=== PATIENT | male | born 1955 | race Hispanic/Latino ===

== ENCOUNTER 2016-12-16 21:09 | Inpatient (IN) | payer MEDICARE, MEDICAID, OTHER ==
[2016-12-16 21:34] LABS: BASO # 0.03 K/mm3 (0.0-2.0); BASO % 0.2 % (0.0-3.0); EOS # 0.1 (0.0-0.7); EOS % 0.6 % (1.5-5.0); GRAN # 9.08 (1.4-6.5); GRAN % 74.3 % (50.0-68.0); HEMATOCRIT 43.8 % (42.0-52.0); LYMPH # 2.2 (1.2-3.4); LYMPH % 18.2 % (22.0-35.0); MEAN CELL VOLUME 89.9 fl (80.0-105.0); MEAN CORPUSCULAR HGB CONC 35.6 g/dl (31.0-37.0); MEAN PLATELET VOLUME 10.7 fl (7.0-11.0); MONO # 0.8 (0.1-0.6); MONO % 6.7 % (1.0-6.0); RED CELL DISTRIBUTION WIDTH 13.2 % (11.5-14.5); WHITE BLOOD COUNT 12.2 10^3/ul (4.5-11.0)
--- NOTE | 2016-12-16 21:46 | ED PDOC ---
Arrival/HPI - General Chief Complaint: Weakness/Neurological Deficit Time Seen by Provider: 12/16/16 21:11 Historian: Patient - History of Present Illness Narrative History of Present Illness (Text): 12/16/16 21:12 Lawrence Lenz is a 61 year old male, whose past medical history includes DVT, who presents to the emergency department complaining of general weakness, stumbling, and slurred speech for an unknown time frame as per EMS. Patient denies any fever, chills, chest pain, shortness of breath, nausea, vomiting, diarrhea, urinary symptoms, back pain, neck pain, headache, dizziness, or any other complaints. Time/Duration: Other (unknown) Symptom Course: Unchanged Activities at Onset: Light Context: Home Past Medical History - Provider Review Nursing Documentation Reviewed: Yes - Infectious Disease Hx of Infectious Diseases: None - Tetanus Immunization Tetanus Immunization: Unknown - Reproductive Currently : No Currently Lactating: No - Cardiac Hx Cardiac Disorders: Yes Hx Hypertension: Yes - HEENT Hx HEENT Disorder: ([place]) - Endocrine/Metabolic Hx Endocrine Disorders: Yes Hx Diabetes Mellitus Type 2: Yes - Hematological/Oncological Hx Blood Transfusions: No Hx Blood Transfusion Reaction: No - Integumentary Hx Dermatological Disorder: No - Musculoskeletal/Rheumatological Hx Musculoskeletal Disorders: No - Gastrointestinal Hx Gastrointestinal Disorders: No - Genitourinary/Gynecological Hx Genitourinary Disorders: No - Psychiatric Hx Emotional Abuse: No Hx Physical Abuse: No Hx Substance Use: No - Past Surgical History Past Surgical History: No Previous - Surgical History Hx Appendectomy: Yes Other/Comment: plate on mouth - Anesthesia Hx Anesthesia: Yes Hx Anesthesia Reactions: No Hx Malignant Hyperthermia: No - Suicidal Assessment Feels Threatened In Home Enviroment: No Family/Social History - Physician Review Nursing Documentation Reviewed: Yes Family/Social History: No Known Family HX Smoking Status: Current Some Days Smoker Hx Alcohol Use: No Hx Substance Use: No Allergies/Home Meds Allergies/Adverse Reactions: Allergies No Known Allergies Allergy (Verified 12/16/16 21:21) Home Medications: Home Meds Medication Instructions Recorded Confirmed Atorvastatin Calcium [Lipitor] 20 mg PO DAILY 10/09/12 12/16/16 Glimepiride [amaRYL] 4 mg PO DAILY 05/28/15 12/16/16 Metformin HCl [Glucophage] 500 mg PO DAILY 05/28/15 12/16/16 Olanzapine [Zyprexa] 5 mg PO DAILY 05/28/15 12/16/16 PARoxetine [Paxil] 10 mg PO DAILY 05/28/15 12/16/16 Valsartan [Diovan] 320 mg PO DAILY 05/28/15 12/16/16 amLODIPine [Norvasc] 5 mg PO HS 05/28/15 12/16/16 diaZEpam [Valium] 5 mg PO PRN PRN 05/28/15 12/16/16 Review of Systems - Physician Review All systems were reviewed & negative as marked: Yes - Review of Systems Constitutional: Other (Generalized weakness). absent: Fevers, Night Sweats Eyes: absent: Vision Changes ENT: absent: Hearing Changes Respiratory: absent: SOB Cardiovascular: absent: Chest Pain Gastrointestinal: absent: Abdominal Pain Genitourinary Male: absent: Dysuria Musculoskeletal: absent: Arthralgias Skin: absent: Rash, Pruritis Neurological: Speech Changes (slurred speech). absent: Headache Endocrine: absent: Diaphoresis Hemo/Lymphatic: absent: Adenopathy Psychiatric: absent: Anxiety Physical Exam Vital Signs Reviewed: Yes Vital Signs Temp Pulse Resp BP Pulse Ox 12/17/16 03:00 23 138/62 95 12/16/16 23:55 79 21 148/81 93 L 12/16/16 21:26 99.4 F 81 16 141/85 100 Temperature: Afebrile Blood Pressure: Normal Pulse: Regular Respiratory Rate: Normal Appearance: Positive for: Other (Confused) Pain Distress: None Finger Stick Blood Glucose: 370 - Systems Exam Head: Present: Atraumatic, Normocephalic Pupils: Present: PERRL Extroacular Muscles: Present: EOMI Conjunctiva: Present: Normal Mouth: Present: Moist Mucous Membranes Neck: Present: Normal Range of Motion Respiratory/Chest: Present: Clear to Auscultation, Good Air Exchange. No: Respiratory Distress, Accessory Muscle Use Cardiovascular: Present: Regular Rate and Rhythm, Normal S1, S2. No: Murmurs Abdomen: Present: Normal Bowel Sounds. No: Tenderness, Distention, Peritoneal Signs Back: Present: Normal Inspection Upper Extremity: Present: Normal Inspection. No: Cyanosis, Edema Lower Extremity: Present: Normal Inspection. No: Edema Skin: Present: Warm, Dry, Normal Color. No: Rashes Medical Decision Making ED Course and Treatment: 12/16/16 21:15 Impression: 61 year old male complaining of generalized weakness, stumbling and slurred speech for an unknown time frame. Differential Diagnosis included but are not limited to: Plan: -- EKG -- Head CT w/o contrast -- Blood Culture -- Urine Culture and Urinalysis -- Labs -- Reassess and disposition Prior Visits: Notes and results from previous visits were reviewed. Patient last seen in the ED on 05/28/15 for Left 4th finger painful swelling for 2 weeks. Patient was discharged home. Progress Notes: EKG: Ordered, reviewed, and independently interpreted the EKG. Rate : 88 BPM Rhythm : NSR Interpretation : Non-specific ST wave changes. Comparison : No previous EKG for comparison. 12/16/16 22:56 HEAD W/O CONTRAST: Creator : Lia Ortega MD FINDINGS: BRAIN: Focal area of low density measuring 3.5 cm in the left cerebellum infero-medially, most likely representing focal encephalomalacia secondary to a chronic infarct. Areas of low density in the periventricular white matter bilaterally, most likely representing mild chronic small vessel ischemic changes. No significant acute abnormality identified. Diffuse, age-related cortical atrophy and ventriculomegaly. No acute hemorrhage seen within the brain. No acute extra-axial fluid collections visualized. No evidence of significant mass effect within the brain. VENTRICLES: See above. BONES/JOINTS: No acute fractures or other acute bony abnormality noted. SOFT TISSUES: No acute abnormality of the visualized soft tissues is seen. VASCULATURE: Atherosclerotic calcification. SINUSES: Visualized paranasal sinuses appear clear. MASTOID AIR CELLS: Mastoid air cells appear clear. IMPRESSION: - No acute findings seen within the brain. - Focal encephalomalacia in the left cerebellum, most likely secondary to a chronic infarct. - See above for remaining findings. case d/w dr kelley kennedy tele obs for ams, possible medication abuse 12/17/16 06:16 - Lab Interpretations Lab Results: 12/16/16 21:15 12/16/16 21:15 Lab Results 12/16/16 23:47: pCO2 43, pO2 54.0 L, HCO3 27.9, ABG pH 7.42, ABG Total CO2 29.2 H, ABG O2 Saturation 96.0, ABG O2 Content 15.8, ABG Base Excess 2.9, ABG Hemoglobin 14.5, ABG Carboxyhemoglobin 18.4 H, POC ABG HHb (Measured) 3.2, ABG Methemoglobin 1.0, ABG O2 Capacity 16.5, Hgb O2 Saturation 77.4 L, FiO2 21.0 12/16/16 22:05: Ammonia < 9 L 12/16/16 21:15: Acetaminophen < 10.0 L 12/16/16 21:15: Alcohol, Quantitative < 10 12/16/16 21:15: Sodium 137, Potassium 3.6, Chloride 100, Carbon Dioxide 26, Anion Gap 15, BUN 11, Creatinine 0.6, Est GFR ( Amer) > 60, Est GFR (Non- Af Amer) > 60, Random Glucose 298 H, Calcium 9.4, Phosphorus 3.5, Magnesium 1.7 , Total Bilirubin 0.5, AST 21, ALT 20, Alkaline Phosphatase 177 H, Lactate Dehydrogenase 453, Total Creatine Kinase 49, Troponin I < 0.01, Total Protein 6.8, Albumin 4.3, Globulin 2.5, Albumin/Globulin Ratio 1.7 12/16/16 21:15: PT 10.9, INR 1.01, APTT 26.4 12/16/16 21:15: WBC 12.2 H, RBC 4.87, Hgb 15.6, Hct 43.8, MCV 89.9, MCH 32.0, MCHC 35.6, RDW 13.2, Plt Count 162, MPV 10.7, Gran % 74.3 H, Lymph % (Auto) 18.2 L, [place] % (Auto) 6.7 H, Eos % (Auto) 0.6 L, Baso % (Auto) 0.2, Gran # 9.08 H, Lymph # 2.2, [place] # 0.8 H, Eos # 0.1, Baso # 0.03 I have reviewed the lab results: Yes - RAD Interpretation Radiology Orders: 12/16/16 21:23 HEAD W/O CONTRAST [CT] Stat - Medication Orders Current Medication Orders: Albuterol/Ipratropium (Duoneb 3 Mg/0.5 Mg (3 Ml) Ud) 3 ml IH Q4H PRN PRN Reason: Shortness of Breath Insulin Human Regular (Humulin R Low) 0 units SC ACHS TIFFANIE PRN Reason: Protocol Discontinued Medications Albuterol/Ipratropium (Duoneb 3 Mg/0.5 Mg (3 Ml) Ud) 3 ml IH STAT STA Stop: 12/17/16 00:13 Last Admin: 12/17/16 00:30 Dose: 3 ml Methylprednisolone (Solu-Medrol) 125 mg IVP ONCE ONE Stop: 12/17/16 01:03 Last Admin: 12/17/16 01:33 Dose: 125 mg IVP Administration Document 12/17/16 01:33 SC (Rec: 12/17/16 01:33 SC [id number]) Charges for Administration # of IVP Administrations 1 NIHSS Scale ([place]) - How Severe is the Stoke Baseline Level of Consciousness: 0=Alert LOC to Questions: 0=Both comments correct LOC to commands: 0=Obeys both correctly Best Gaze: 0=Normal Visual: 0=No visual loss Facial: 0=Normal Motor Arm - Left: 0=No drift Motor Arm - Right: 0=No drift Motor Leg - Left: 0=No drift Motor Leg - Right: 0=No drift Limb Ataxia: 0=Absent Sensory: 0=Normal Best Language: 0=No aphasia Dysarthia: 0=Normal articulation Extinction & Inattention (Neglect): 0=Normal, no object Score: 0 Risk Level: No Stroke Risk rTPA Inclusion/Exclusion - Refusal of Treatment Patient Refused Treatment: No - Inclusion Criteria for Altepase Patient is 18 years or Older: Yes The Clinical Diagnosis of Ischemic Stroke That is Causing a Potentially Disabling Neurological Deficit: No Time of Onset is Well Established to be Less Than 270 Minute Before Treatment Would Begin: No Risk/Benefit Discussed With Patient/Family Member Present: No - Exclusion Criteria for Altepase Uncontrolled Hypertension at Time of Treatment (Systolic BP above 185 or Diastolic BP above 110 mmHg): No Active Internal Bleeding: No Known Bleeding Diathesis Including but Not Limited to: Platelets Below 100,000/ mm,PTT Above 40 sec After Heparin Use, Current Use of Oral Anitcoagulant With INR Greater Than 1.7 or PT Greater Than 15 secs: No Evidence of an Intracranial Hemorrhage: No Evidence of Major Acute Infarct With Signs Greater Than 1/3 MCA Territory: No Suspicion of Subarachnoid Hemorrhage on Pretreatment Evaluation Even if CT Head Negative For Hemorrhage: No - Warning to TPA With Conditions Condition: Stroke Serevity Too Mild - Scribe Statement The provider has reviewed the documentation as recorded by the Scribe Chana Jim Provider Scribe Attestation: All medical record entries made by the Benja were at my direction and personally dictated by me. I have reviewed the chart and agree that the record accurately reflects my personal performance of the history, physical exam, medical decision making, and the department course for this patient. I have also personally directed, reviewed, and agree with the discharge instructions and disposition. Disposition/Present on Arrival - Present on Arrival Any Indicators Present on Arrival: No History of DVT/PE: Yes History of Uncontrolled Diabetes: Yes Urinary Catheter: No History of Decub. Ulcer: No History Surgical Site Infection Following: None - Disposition Have Diagnosis and Disposition been Completed?: Yes Diagnosis: Altered mental status Disposition: HOSPITALIZED Disposition Time: 22:00 Condition: FAIR
[2016-12-16 21:50] LABS: ALB/GLOB RATIO 1.7 (1.1-1.8); ALKALINE PHOSPHATASE 177 U/L (38-126); ALT/SGPT 20 U/L (7-56); AST/SGOT 21 U/L (17-59); BILIRUBIN,TOTAL 0.5 mg/dL (0.2-1.3); BLOOD UREA NITROGEN 11 mg/dL (7-21); CALCIUM 9.4 mg/dL (8.4-10.5); CARBON DIOXIDE 26 mmol/L (21-33); CHLORIDE 100 mmol/L (98-107); GFR AFRICAN-AMERICAN > 60; GLUCOSE,RANDOM 298 mg/dL (70-110); MAGNESIUM 1.7 mg/dL (1.7-2.2); PHOSPHOROUS 3.5 mg/dL (2.5-4.5); POTASSIUM 3.6 mmol/L (3.6-5.0); SODIUM 137 mmol/L (132-148); TOTAL PROTEIN 6.8 g/dL (5.8-8.3)
[2016-12-16 21:55] LABS: INR 1.01 (0.93-1.08); PARTIAL THROMBOPLASTIN TIME 26.4 Seconds (23.7-30.8)
[2016-12-16 22:06] LABS: TROPONIN I < 0.01 ng/mL
--- NOTE | 2016-12-16 22:36 | CT ---
EXAM: CT Head Without Intravenous Contrast EXAM DATE/TIME: 12/16/2016 9:23 PM CLINICAL HISTORY: 61 years old, male; Signs and symptoms; Altered mental status/memory loss; Confusion or disorientation; Additional info: AMS TECHNIQUE: Axial computed tomography images of the head/brain without intravenous contrast. All CT scans at this facility use one or more dose reduction techniques, viz.: automated exposure control; ma/kV adjustment per patient size (including targeted exams where dose is matched to indication; i.e. head); or iterative reconstruction technique. COMPARISON: No relevant prior studies available. FINDINGS: BRAIN: Focal area of low density measuring 3.5 cm in the left cerebellum infero-medially, most likely representing focal encephalomalacia secondary to a chronic infarct. Areas of low density in the periventricular white matter bilaterally, most likely representing mild chronic small vessel ischemic changes. No significant acute abnormality identified. Diffuse, age-related cortical atrophy and ventriculomegaly. No acute hemorrhage seen within the brain. No acute extra-axial fluid collections visualized. No evidence of significant mass effect within the brain. VENTRICLES: See above. BONES/JOINTS: No acute fractures or other acute bony abnormality noted. SOFT TISSUES: No acute abnormality of the visualized soft tissues is seen. VASCULATURE: Atherosclerotic calcification. SINUSES: Visualized paranasal sinuses appear clear. MASTOID AIR CELLS: Mastoid air cells appear clear. IMPRESSION: - No acute findings seen within the brain. - Focal encephalomalacia in the left cerebellum, most likely secondary to a chronic infarct. - See above for remaining findings.
[2016-12-16 23:51] LABS: ARTERIAL BLOOD GAS HCO3 27.9 mmol/L (21-28); ARTERIAL BLOOD GAS O2 CAPACITY 16.5 mL/dl (16-24); ARTERIAL BLOOD GAS O2 CONTENT 15.8 ML/dl (15-23); ARTERIAL BLOOD GAS PH 7.42 (7.35-7.45); ARTERIAL BLOOD HGB O2 SAT 77.4 % (95.0-98.0); CARBOXYHEMOGLOBIN 18.4 % (0.5-1.5); HHB 3.2 % (0-5)
[2016-12-17] MEDS ORDERED: Albuterol-Ipratrop 3 mg / 0.5 (3 ml) UD IH STA (00:12)
[2016-12-17] MEDS ORDERED: Albuterol-Ipratrop 3 mg / 0.5 (3 ml) UD IH PRN (00:53)
[2016-12-17 03:22] LABS: URINE BILIRUBIN NEGATIVE (NEGATIVE); URINE BLOOD NEGATIVE (NEGATIVE); URINE GLUCOSE (UA) >=1000 mg/dL (NEGATIVE); URINE KETONE TRACE mg/dL (NEGATIVE); URINE LEUKOCYTE ESTERASE NEGATIVE Leu/uL (NEGATIVE); URINE PROTEIN NEGATIVE mg/dL (<30 mg/dL); URINE UROBILINOGEN 0.2 E.U./dL (<1 E.U./dL)
[2016-12-17 03:25] LABS: URINE APPEARANCE CLEAR (CLEAR); URINE COLOR YELLOW (YELLOW)
--- NOTE | 2016-12-17 09:52 | CP.PCM.HP ---
History of Present Illness - History of Present Illness History of Present Illness: 61 yo male adm to ICU for AMS x 1 day. Patient confused, no cp , no sob. No witnessed SZ of syncope. CT head neg for acute bleed/infarct Present on Admission - Present on Admission Any Indicators Present on Admission: No Review of Systems - Constitutional Constitutional: Frequent Falls, Weight Loss, Weakness - EENT Nose/Mouth/Throat: Hoarsness, Neck Pain - Cardiovascular Cardiovascular: Claudication, Dyspnea on Exertion - Respiratory Respiratory: Cough, Dyspnea on Exertion - Neurological Neurological: Abnormal Gait, Abnormal Speech, Confusion Past Patient History - Infectious Disease Hx of Infectious Diseases: None - Tetanus Immunizations Tetanus Immunization: Unknown - Past Social History Smoking Status: Current Some Days Smoker - CARDIAC Hx Cardiac Disorders: Yes Hx Hypertension: Yes - PULMONARY Hx Chronic Obstructive Pulmonary Disease (COPD): Yes - HEENT Hx HEENT Problems: Yes ([place]) - ENDOCRINE/METABOLIC Hx Endocrine Disorders: Yes Hx Diabetes Mellitus Type 2: Yes - HEMATOLOGICAL/ONCOLOGICAL Hx Blood Transfusions: No Hx Blood Transfusion Reaction: No - INTEGUMENTARY Hx Dermatological Problems: No - MUSCULOSKELETAL/RHEUMATOLOGICAL Hx Musculoskeletal Disorders: No - GASTROINTESTINAL Hx Gastrointestinal Disorders: No - GENITOURINARY/GYNECOLOGICAL Hx Genitourinary Disorders: No - PSYCHIATRIC Hx Emotional Abuse: No Hx Physical Abuse: No Hx Substance Use: No - SURGICAL HISTORY Hx Appendectomy: Yes Other/Comment: plate on mouth - ANESTHESIA Hx Anesthesia: Yes Hx Anesthesia Reactions: No Hx Malignant Hyperthermia: No Meds Allergies/Adverse Reactions: Allergies Allergy/AdvReac Type Severity Reaction Status Date / Time No Known Allergies Allergy Verified 12/16/16 21:21 Physical Exam - Constitutional Appears: Cachectic - Head Exam Head Exam: ATRAUMATIC, NORMOCEPHALIC - Eye Exam Eye Exam: EOMI, PERRL - Neck Exam Neck exam: Positive for: Normal Inspection - Respiratory Exam Respiratory Exam: Rhonchi, Wheezes - Cardiovascular Exam Cardiovascular Exam: REGULAR RHYTHM - GI/Abdominal Exam GI & Abdominal Exam: Normal Bowel Sounds, Soft - Extremities Exam Extremities exam: Positive for: normal inspection - Neurological Exam Neurological exam: Abnormal Gait, Altered - Psychiatric Exam Psychiatric exam: Flat Affect - Skin Skin Exam: Dry, Warm Results - Vital Signs Recent Vital Signs: Last Vital Signs Temp 98.9 F 12/17/16 06:30 Pulse 80 12/17/16 09:38 Resp 21 12/17/16 08:00 BP 128/63 12/17/16 08:00 Pulse Ox 98 12/17/16 08:00 - Labs Result Diagrams: 12/16/16 21:15 12/16/16 21:15 Labs: Laboratory Results - last 24 hr 12/17/16 12/17/16 03:00 03:00 Urine Color Yellow Urine Appearance Clear Urine pH 7.0 Ur Specific [place] 1.015 Urine Protein Negative Urine Glucose (UA) >=1000 Urine Ketones Trace H Urine Blood Negative Urine Nitrate Negative Urine Bilirubin Negative Urine Urobilinogen 0.2 Ur Leukocyte Esterase Negative Urine Opiates Screen Negative Urine Methadone Screen Negative Ur Barbiturates Screen Negative Ur Phencyclidine Scrn Negative Ur Amphetamines Screen Negative U Benzodiazepines Scrn Positive U Oth Cocaine Metabols Negative U Cannabinoids Screen Negative Assessment & Plan (1) Altered mental status Status: Acute (2) COPD (chronic obstructive pulmonary disease) Status: Chronic (3) Type II diabetes mellitus Status: Chronic (4) Hypertension Status: Chronic (5) Hoarseness of voice Status: Chronic - Assessment and Plan (Free Text) Plan: neuro eval, possible MRA/MRI brain, ENT eval, continue monitor mental status - Date & Time Date: 12/17/16 Time: 09:45
--- NOTE | 2016-12-17 10:51 | RAD ---
HISTORY: cp COMPARISON: 08/13/2013 FINDINGS: LUNGS: No active pulmonary disease. PLEURA: No significant pleural effusion identified, no pneumothorax apparent. CARDIOVASCULAR: Normal. OSSEOUS STRUCTURES: No significant abnormalities. VISUALIZED UPPER ABDOMEN: Normal. OTHER FINDINGS: None. IMPRESSION: No active disease.
[2016-12-17] MEDS: Insulin Reg-LOW-Coverage SC SCH ×4 (12:03→22:19)
--- NOTE | 2016-12-17 12:32 | CARD ---
APPROVED REPORT EKG Measurement Heart [id number] ID [id number] <Conclusion> Sinus rhythm with APC's, 1 PVC Rightward axis Possible septal infarct, age undetermined NSSTW changes
[2016-12-17 12:51] VITALS: BMI 20.6
[2016-12-17] MEDS ORDERED: Pneumococcal 23-Valent Vaccine IM ONE (12:51)
[2016-12-17] MEDS ORDERED: Gadodiamide 287 MG/ML VIAL (20ML) IV ONE (13:21)
--- NOTE | 2016-12-17 13:40 | CP.PCM.CON ---
<Pari Menjivar - Last Filed: 12/17/16 14:02> History of Present Illness - History of Present Illness History of Present Illness: Neurology Consult Note for Jayden Rome PGY2 Reason for consult: AMS This is a 61Y M with PMH HTN, DM, HLD, DVT, anxiety who was brought to ED for AMS. Upon interview, patient was confused. He was A&O x 1 to person only. He denies having any pain, weakness, headache, CP, SOB, n/v/d, numbness/tingling. At times he has trouble speaking full sentences. I spoke with a co-worker who was placed as next of kin. According to her, the patient did not come into work yesterday. The neighbor called his house and noticed his speech was off. The used building materials yard worker came to see the patient and found the patient was confused and decided to call EMS. The patient lives alone and does not have any family members. Head CT on admission showed chronic focal encephalomalacia of the L cerebellum. Tox screen was positive for benzos which he is on at home. History was obtained from previous records. Patient had a carotid dopplers done on 12/10/2016 which showed 20-39% stenosis. L vertebral artery was not visualized. Patient is noted to have L SFA occlusion on lower extremity MRA in 11/06/16 PMH: HTN, DM, HLD, DVT, anxiety PSH: L facial abscess I&D Home meds: As per MAY ALL: NKDA SH: + tobacco use, denies EtOH or drug use Review of Systems - Review of Systems Systems not reviewed;Unavailable: Altered Mental Status All systems: reviewed and no additional remarkable complaints except Review of Systems: denies having any pain, weakness, headache, CP, SOB, n/v/d, numbness/tingling. Past Patient History - Infectious Disease Hx of Infectious Diseases: None - Tetanus Immunizations Tetanus Immunization: Unknown - Past Social History Smoking Status: Current Some Days Smoker Alcohol: None Drugs: Denies Home Situation {Lives}: Alone - CARDIAC Hx Cardiac Disorders: Yes Hx Hypercholesterolemia: Yes Hx Hypertension: Yes Hx Peripheral Vascular Disease: Yes (DVT) - PULMONARY Hx Respiratory Disorders: Yes (SMOKES CIGARETTES PPD) Hx Chronic Obstructive Pulmonary Disease (COPD): Yes - NEUROLOGICAL Hx Neurological Disorder: Yes - HEENT Hx HEENT Problems: Yes ([place]) Hx Deafness: Yes (LEFT EAR) - RENAL Hx Chronic Kidney Disease: No - ENDOCRINE/METABOLIC Hx Endocrine Disorders: Yes Hx Diabetes Mellitus Type 2: Yes - HEMATOLOGICAL/ONCOLOGICAL Hx Blood Disorders: No - INTEGUMENTARY Hx Dermatological Problems: No - MUSCULOSKELETAL/RHEUMATOLOGICAL Hx Musculoskeletal Disorders: Yes Hx Falls: Yes (MULTIPLE FALLS) - GASTROINTESTINAL Hx Gastrointestinal Disorders: No - GENITOURINARY/GYNECOLOGICAL Hx Genitourinary Disorders: No - PSYCHIATRIC Hx Psychophysiologic Disorder: No Hx Emotional Abuse: No Hx Physical Abuse: No Hx Substance Use: No (DENIES) - SURGICAL HISTORY Hx Surgeries: Yes Hx Appendectomy: Yes Other/Comment: plate on mouth - ANESTHESIA Hx Anesthesia: Yes Hx Anesthesia Reactions: No Hx Malignant Hyperthermia: No Meds Allergies/Adverse Reactions: Allergies Allergy/AdvReac Type Severity Reaction Status Date / Time No Known Allergies Allergy Verified 12/17/16 11:27 - Medications Medications: Current Medications Albuterol/Ipratropium (Duoneb 3 Mg/0.5 Mg (3 Ml) Ud) 3 ml IH Q4H PRN PRN Reason: Shortness of Breath Insulin Human Regular (Humulin R Low) 0 units SC ACHS [facility] PRN Reason: Protocol Last Admin: 12/17/16 12:04 Dose: 3 units Thiamine HCl (Vitamin B1 Inj) 100 mg IM BID [facility] Physical Exam - Constitutional Appears: No Acute Distress, Confused - Head Exam Head Exam: ATRAUMATIC, NORMAL INSPECTION, NORMOCEPHALIC - Eye Exam Eye Exam: Normal appearance, PERRL Pupil Exam: NORMAL ACCOMODATION, PERRL - ENT Exam ENT Exam: Mucous Membranes Moist - Respiratory Exam Respiratory Exam: Clear to Auscultation Bilateral, NORMAL BREATHING PATTERN. absent: Rales, Rhonchi, Wheezes - Cardiovascular Exam Cardiovascular Exam: REGULAR RHYTHM, +S1, +S2. absent: Gallop, Rubs, Systolic Murmur - GI/Abdominal Exam GI & Abdominal Exam: Normal Bowel Sounds, Soft. absent: Rebound, Rigid, Tenderness - Extremities Exam Extremities exam: Positive for: normal inspection. Negative for: calf tenderness, pedal edema - Neurological Exam Neurological exam: Alert, CN II-XII Intact Additional comments: A&O x 1 - Psychiatric Exam Psychiatric exam: Normal Affect, Normal Mood - Skin Skin Exam: Dry, Intact, Normal Color, Warm Results - Vital Signs Recent Vital Signs: Last Vital Signs Temp 98.5 F 12/17/16 12:02 Pulse 80 12/17/16 12:02 Resp 21 12/17/16 12:02 BP 128/63 12/17/16 12:02 Pulse Ox 98 12/17/16 08:00 - Labs Result Diagrams: 12/16/16 21:15 12/16/16 21:15 Labs: Laboratory Results - last 24 hr 12/17/16 12/17/16 03:00 03:00 Urine Color Yellow Urine Appearance Clear Urine pH 7.0 Ur Specific [place] 1.015 Urine Protein Negative Urine Glucose (UA) >=1000 Urine Ketones Trace H Urine Blood Negative Urine Nitrate Negative Urine Bilirubin Negative Urine Urobilinogen 0.2 Ur Leukocyte Esterase Negative Urine Opiates Screen Negative Urine Methadone Screen Negative Ur Barbiturates Screen Negative Ur Phencyclidine Scrn Negative Ur Amphetamines Screen Negative U Benzodiazepines Scrn Positive U Oth Cocaine Metabols Negative U Cannabinoids Screen Negative Assessment & Plan - Assessment and Plan (Free Text) Assessment: This is a 61Y M with PMH HTN, DM, HLD, DVT, anxiety who was brought to ED for AMS. Head CT showed L chronic focal encephalomalacia of cerebellum. Carotid doppler showed 20-39% stenosis with no visualization of L vertebral artery. Tox screen positive for benzo which pt has at home. Ammonia level normal. AMS can be secondary to CVA due to underlying risk factors. Patient noted to have L SFA occlusion and was supposedly scheduled for a surgery. He is currently not on any anticoagulants. Plan: - Will obtain head/neck MRA - Will order brain MRI - Avoid sedation medications - Will start pt on ASA - Will consult IR for L SFA occlusion - Thiamine 100mg BID - HgbA1c ordered - Maintain euglycemia (140s-180s) - Physical therapy/Occupation therapy Case seen, discussed and reviewed with attending, Dr. Hays. Jayden Menjivar PGY2 - Date & Time Date: 12/17/16 Time: 13:41 <Vicente Hays - Last Filed: 12/17/16 15:15> Meds - Medications Medications: Current Medications Albuterol/Ipratropium (Duoneb 3 Mg/0.5 Mg (3 Ml) Ud) 3 ml IH Q4H PRN PRN Reason: Shortness of Breath Aspirin (Ecotrin) 81 mg PO DAILY [facility] Insulin Human Regular (Humulin R Low) 0 units SC ACHS [facility] PRN Reason: Protocol Last Admin: 12/17/16 12:04 Dose: 3 units Thiamine HCl (Vitamin B1 Inj) 100 mg IM BID [facility] Results - Vital Signs Recent Vital Signs: Last Vital Signs Temp 98.5 F 12/17/16 12:02 Pulse 80 12/17/16 12:02 Resp 21 12/17/16 12:02 BP 128/63 12/17/16 12:02 Pulse Ox 98 12/17/16 08:00 - Labs Result Diagrams: 12/16/16 21:15 12/16/16 21:15 Labs: Laboratory Results - last 24 hr 12/17/16 12/17/16 03:00 03:00 Urine Color Yellow Urine Appearance Clear Urine pH 7.0 Ur Specific [place] 1.015 Urine Protein Negative Urine Glucose (UA) >=1000 Urine Ketones Trace H Urine Blood Negative Urine Nitrate Negative Urine Bilirubin Negative Urine Urobilinogen 0.2 Ur Leukocyte Esterase Negative Urine Opiates Screen Negative Urine Methadone Screen Negative Ur Barbiturates Screen Negative Ur Phencyclidine Scrn Negative Ur Amphetamines Screen Negative U Benzodiazepines Scrn Positive U Oth Cocaine Metabols Negative U Cannabinoids Screen Negative Attending/Attestation - Attestation I have personally seen and examined this patient.: Yes I have fully participated in the care of the patient.: Yes I have reviewed all pertinent clinical information: Yes
--- NOTE | 2016-12-17 16:10 | MRI ---
PROCEDURE: MRI BRAIN WITHOUT CONTRAST HISTORY: r/o cva COMPARISON: None. TECHNIQUE: Multiplanar, multisequence MR images of the brain were obtained without intravenous contrast enhancement. FINDINGS: HEMORRHAGE: None DWI: Multiple cortical and subcortical acute infarcts are seen in the left frontal lobe. These are in the distribution of the left middle cerebral artery. Small infarcts are also seen in the left thalamus and left posterior temporal lobe. BRAIN PARENCHYMA: No mass effect or edema. Mild chronic microvascular changes are seen in the periventricular white matter. VENTRICLES: Unremarkable. No hydrocephalus. CRANIUM: Unremarkable. ORBITS: Grossly unremarkable. PARANASAL SINUSES/MASTOIDS: Clear VASCULAR SYSTEM: Skull base flow voids intact. OTHER FINDINGS: None. IMPRESSION: Multiple acute cortical and subcortical infarcts in the left frontal lobe.
--- NOTE | 2016-12-17 16:16 | MRI ---
PROCEDURE: Magnetic Resonance Angiography Brain HISTORY: r/o cva COMPARISON: None available. TECHNIQUE: 3D time of flight MR angiography of the intracranial arteries was performed. Rotating maximum intensity projection images were generated. FINDINGS: INTERNAL CAROTID ARTERIES: There is occlusion of the left internal carotid artery. ANTERIOR CEREBRAL ARTERIES: Unremarkable. A1 and A2 segments are widely patent. Smaller distal branches unremarkable, as visualized. MIDDLE CEREBRAL ARTERIES: There is lack of antegrade flow in the middle cerebral arteries bilaterally. There is probably retrograde collateral flow that is not visible on MRA. MRI study performed at the same time shows multiple acute infarcts in the left frontal lobe and no infarcts on the right side. POSTERIOR CIRCULATION: Basilar Artery: Unremarkable. Distal Vertebral Arteries: Unremarkable. Posterior Cerebral Arteries: Unremarkable. Posterior Inferior Cerebellar Arteries: Unremarkable. ANEURYSM/ VASCULAR MALFORMATIONS: None. OTHER FINDINGS: None. IMPRESSION: There is lack of antegrade flow in the middle cerebral arteries bilaterally. There is probably retrograde collateral flow that is not visible on MRA. MRI study performed at the same time shows multiple acute infarcts in the left frontal lobe and no infarcts on the right side. There is occlusion of the left internal carotid artery
--- NOTE | 2016-12-17 16:23 | MRI ---
PROCEDURE: MR Angiography of the neck with and without contrast HISTORY: r/o cva COMPARISON: None available. TECHNIQUE: Contrast enhanced and [id number] angiography of the neck was performed. Rotating 3D maximum intensity projection images of the cervical carotid and vertebral arteries were generated. 20 cc of Omniscan FINDINGS: RIGHT CAROTID ARTERIES: Common Carotid Artery: Normal. Carotid Bifurcation: Normal. Internal Carotid Artery:No significant stenosis External Carotid Artery (proximal branches): Normal. LEFT CAROTID ARTERIES: Common Carotid Artery: Normal. Carotid Bifurcation: There is complete occlusion of the left internal carotid at its origin Internal Carotid Artery:As above External Carotid Artery (proximal branches): Normal. VERTEBRAL ARTERIES: Right Vertebral Artery: Normal. Left Vertebral Artery: Occluded or hypoplastic OTHER FINDINGS: None. IMPRESSION: Complete occlusion of left internal carotid at its origin. Occluded or hypoplastic left vertebral artery.
[2016-12-17] MEDS: Heparin 25,000units in D5W 25,000 UNITS/250 ML BAG IV PRN (20:39)
[2016-12-18] MEDS: Insulin Reg-HIGH-Coverage SC SCH ×4 (08:23→23:19)
--- NOTE | 2016-12-18 09:50 | CP.PCM.PN ---
<Pari Menjivar - Last Filed: 12/18/16 09:20> Subjective - Date & Time of Evaluation Date of Evaluation: 12/18/16 Time of Evaluation: 09:21 - Subjective Subjective: Neurology Progress Note for Jayden Rome PGY2 Patient seen and examined at bedside. As per nursing, patient was confused overnight. Restraints were ordered. This am, patient is resting comfortably in bed. He is still confused and only oriented to person. Patient denies having any pain, weakness, numbness/tingling, vision changes, headache or dizziness. It was noted on MRI that patient has multiple acute and subacute infarcts in L frontal lobe. Objective - Vital Signs/Intake and Output Vital Signs (last 24 hours): Temp Pulse Resp BP Pulse Ox 98.3 F 59 L 21 119/74 92 L 12/18/16 08:00 12/18/16 08:00 12/18/16 08:00 12/18/16 08:00 12/18/16 08:00 Intake and Output: 12/18/16 12/18/16 06:59 18:59 Intake Total 220 Output Total 350 Balance -130 - Medications Medications: Current Medications Albuterol/Ipratropium (Duoneb 3 Mg/0.5 Mg (3 Ml) Ud) 3 ml IH Q4H PRN PRN Reason: Shortness of Breath Aspirin (Ecotrin) 81 mg PO DAILY [facility] Last Admin: 12/17/16 15:44 Dose: 81 mg Atorvastatin Calcium (Lipitor) 80 mg PO DIN [facility] Heparin Sodium/Dextrose (Heparin 25,000 Units/250ml In D5w) 25,000 units in 250 mls @ 11.757 mls/hr IV .[id number] PRN; Protocol; 18 UNITS/KG/HR PRN Reason: ADJUST RATE PER PROTOCOL Last Titration: 12/18/16 04:41 Dose: 20 units/kg/hr, 13.063 mls/hr Insulin Human Regular (Humulin R High) 0 units SC ACHS [facility] PRN Reason: Protocol Last Admin: 12/18/16 08:23 Dose: 7 units Thiamine HCl (Vitamin B1 Inj) 100 mg IM BID [facility] - Labs Labs: PT 10.9 Seconds (9.9-11.8) 12/16/16 21:15 INR 1.01 (0.93-1.08) 12/16/16 21:15 APTT 43.9 Seconds (23.7-30.8) H 12/18/16 02:46 - Constitutional Appears: No Acute Distress, Confused - Head Exam Head Exam: ATRAUMATIC, NORMAL INSPECTION, NORMOCEPHALIC - ENT Exam ENT Exam: Mucous Membranes Moist - Neck Exam Neck Exam: Full ROM, Normal Inspection - Respiratory Exam Respiratory Exam: Clear to Ausculation Bilateral, NORMAL BREATHING PATTERN. absent: Rales, Rhonchi, Wheezes - Cardiovascular Exam Cardiovascular Exam: REGULAR RHYTHM, +S1, +S2. absent: Gallop, Rubs, Murmur - GI/Abdominal Exam GI & Abdominal Exam: Soft, Normal Bowel Sounds. absent: Rigid, Tenderness, Mass , Rebound - Extremities Exam Extremities Exam: Normal Capillary Refill, Normal Inspection. absent: Calf Tenderness, Pedal Edema - Neurological Exam Neurological Exam: Awake. absent: Oriented x3 Additional comments: Speech is somewhat slurred with some aphasia noted. Patient A&O x 1 to person. He is unable to follow commands. - Skin Skin Exam: Dry, Intact, Normal Color Additional comments: L foot colder and toes than R. Peripheral pulses noted bilaterally. Assessment and Plan - Assessment and Plan (Free Text) Assessment: This is a 61Y M with PMH HTN, DM, HLD, DVT, anxiety who was brought to ED for AMS. Head CT showed L chronic focal encephalomalacia of cerebellum. MRI showed multiple acute cortical and subcortical infarcts in the L frontal lobe. MRA Head showed lack of anterograde flow of the middle cerebral arteries bilaterally. 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 HgbA1c was noted to be 15.1. AMS secondary to L frontal CVA which is secondary to L ICA stenosis with uncontrolled underlying risk factors including uncontrolled diabetes as well as atherosclerosis. Of note, patient was scheduled for angioplasty of L SFA by Dr. Navarro. Due to his recent CVA, Dr. Navarro will hold off surgery for a few days and keep patient on Heparin drip. Plan: - Recommend ASA, Plavix - Recommend Cardiac work up - Maintain euglycemia (140-180s) - Recommend Metformin - Lipitor 80mg - Continue thiamine - Continue physical therapy and speech therapy - If pt agitated, place on 1:1 and restraints - Avoid sedating medications Case seen, discussed and reviewed with Dr. Hays. Jayden Menjivar PGY2 <Vicente Hays - Last Filed: 12/18/16 10:49> Objective - Vital Signs/Intake and Output Vital Signs (last 24 hours): Temp Pulse Resp BP Pulse Ox 98.3 F 59 L 21 119/74 92 L 12/18/16 08:00 12/18/16 08:00 12/18/16 08:00 12/18/16 08:00 12/18/16 08:00 Intake and Output: 12/18/16 12/18/16 06:59 18:59 Intake Total 220 Output Total 350 Balance -130 - Medications Medications: Current Medications Albuterol/Ipratropium (Duoneb 3 Mg/0.5 Mg (3 Ml) Ud) 3 ml IH Q4H PRN PRN Reason: Shortness of Breath Aspirin (Ecotrin) 81 mg PO DAILY [facility] Last Admin: 12/18/16 10:46 Dose: 81 mg Atorvastatin Calcium (Lipitor) 80 mg PO DIN [facility] Heparin Sodium/Dextrose (Heparin 25,000 Units/250ml In D5w) 25,000 units in 250 mls @ 11.757 mls/hr IV .[id number] PRN; Protocol; 18 UNITS/KG/HR PRN Reason: ADJUST RATE PER PROTOCOL Last Titration: 12/18/16 04:41 Dose: 20 units/kg/hr, 13.063 mls/hr Insulin Human Regular (Humulin R High) 0 units SC ACHS [facility] PRN Reason: Protocol Last Admin: 12/18/16 08:23 Dose: 7 units Thiamine HCl (Vitamin B1 Inj) 100 mg IM BID [facility] Last Admin: 12/18/16 10:44 Dose: 100 mg - Labs Labs: PT 10.9 Seconds (9.9-11.8) 12/16/16 21:15 INR 1.01 (0.93-1.08) 12/16/16 21:15 APTT 49.2 Seconds (23.7-30.8) H 12/18/16 10:30 Attending/Attestation - Attestation I have personally seen and examined this patient.: Yes I have fully participated in the care of the patient.: Yes I have reviewed all pertinent clinical information, including history, physical exam and plan: Yes
[2016-12-18] MEDS: Thiamine 100 mg/ml Inj IM SCH (10:44)
[2016-12-18 10:45] LABS: CHOLESTEROL 158 mg/dL (130-200)
--- NOTE | 2016-12-18 14:59 | CP.PCM.PN ---
Subjective - Date & Time of Evaluation Date of Evaluation: 12/18/16 Time of Evaluation: 14:45 - Subjective Subjective: somewhat less confused, no cp, denies SOB Objective - Vital Signs/Intake and Output Vital Signs (last 24 hours): Temp Pulse Resp BP Pulse Ox 97.1 F L 72 23 157/67 H 93 L 12/18/16 12:00 12/18/16 12:20 12/18/16 12:20 12/18/16 12:00 12/18/16 12:20 - Medications Medications: Current Medications Albuterol/Ipratropium (Duoneb 3 Mg/0.5 Mg (3 Ml) Ud) 3 ml IH Q4H PRN PRN Reason: Shortness of Breath Aspirin (Ecotrin) 81 mg PO DAILY [facility] Last Admin: 12/18/16 10:46 Dose: 81 mg Atorvastatin Calcium (Lipitor) 80 mg PO DIN [facility] Heparin Sodium/Dextrose (Heparin 25,000 Units/250ml In D5w) 25,000 units in 250 mls @ 11.757 mls/hr IV .[id number] PRN; Protocol; 18 UNITS/KG/HR PRN Reason: ADJUST RATE PER PROTOCOL Last Titration: 12/18/16 04:41 Dose: 20 units/kg/hr, 13.063 mls/hr Insulin Human Regular (Humulin R High) 0 units SC ACHS [facility] PRN Reason: Protocol Last Admin: 12/18/16 11:35 Dose: 4 units Thiamine HCl (Vitamin B1 Inj) 100 mg IM BID [facility] Last Admin: 12/18/16 10:44 Dose: 100 mg - Labs Labs: PT 10.9 Seconds (9.9-11.8) 12/16/16 21:15 INR 1.01 (0.93-1.08) 12/16/16 21:15 APTT 49.2 Seconds (23.7-30.8) H 12/18/16 10:30 - Respiratory Exam Respiratory Exam: Clear to Ausculation Bilateral, NORMAL BREATHING PATTERN - Cardiovascular Exam Cardiovascular Exam: REGULAR RHYTHM - GI/Abdominal Exam GI & Abdominal Exam: Soft, Normal Bowel Sounds - Extremities Exam Extremities Exam: Normal Inspection - Neurological Exam Neurological Exam: Alert, Awake - Skin Skin Exam: Dry, Warm Assessment and Plan (1) Altered mental status Status: Acute (2) COPD (chronic obstructive pulmonary disease) Status: Chronic (3) Type II diabetes mellitus Status: Chronic (4) Hypertension Status: Chronic (5) Hoarseness of voice Status: Chronic (6) CVA (cerebral vascular accident) Status: Acute (7) Carotid artery occlusion with cerebral infarction Status: Acute - Assessment and Plan (Free Text) Plan: OK for telemetry, consult vasc Dr. Oumar Navarro, continue IV heparin
[2016-12-18] MEDS: Heparin 25,000units in D5W 25,000 UNITS/250 ML BAG IV PRN (16:00)
--- NOTE | 2016-12-19 01:13 | CON ---
OTOLARYNGOLOGY CONSULT REFERRING PHYSICIAN: Dr. Lugo. CHIEF COMPLAINT: Rule out laryngeal mass. HISTORY OF PRESENT ILLNESS: This is a 61-year-old male with past medical history of hypertension, hyperlipidemia, diabetes mellitus, and previous CVA, who is brought to the ED for altered mental status on 12/16. All history is obtained from previous medical chart, this patient is unable to provide history. According other medical records, the patient was found to be in his house with altered mental status, was brought to the emergency room to rule CVA. His head CT on admission showed chronic focal encephalomalacia of the left cerebellum and also his tox screen was positive for benzodiazepines, which he takes at home. The patient did have carotid Doppler done previously and he has had MRA performed here and a brain MRI that is pending. There is no imaging of the neck. PAST MEDICAL HISTORY: Hypertension, diabetes, hyperlipidemia and previous CVA. PAST SURGICAL HISTORY: Left facial abscess and I and D. HOME MEDICATIONS: As per med records. ALLERGIES: NO KNOWN DRUG ALLERGIES. SOCIAL HISTORY: Positive for tobacco use. Denies alcohol or illicit drug use. REVIEW OF SYSTEMS: Twelve-point review of systems is negative except as state in HPI. MEDICATIONS: Albuterol and ipratropium, insulin human regular, thiamine HCl. PHYSICAL EXAMINATION: GENERAL: The patient is alert. He is oriented to self. He is in no acute distress, lying in bed. HEAD: Normocephalic, atraumatic. EYE: Pupils are equal, round and reactive to light. Vision grossly normal. EARS: Auricles appear symmetric. No masses noted. NOSE: Nares patent bilaterally. No discharge. No bleeding noted. ORAL: Mucous membranes are moist. The patient has poor dentition. Tongue is non-edematous. Mucosa is non-friable. No lesions noted in the oral cavity. Palpation of the tongue base soft, no mass is palpated or firmness palpated bilaterally. Tonsils are palpated and did not feel firm palpation. The posterior oropharynx is visualized, no bleeding or postnasal drip seen. NECK: Soft, supple. No lymphadenopathy. No masses palpated. HEART: Normal rate. RESPIRATORY: Breathing normally. Flexible fiberoptic laryngoscope. After achieving verbal consent from the patient, the nose was anesthetized using 50/50 mixture of Afrin and lidocaine. The scope was then passed to the right naris, which revealed a nasal septal spur below eyes normal anatomy. The soft palate appeared normal. The eustachian tubes were patent bilaterally. No masses seen in the posterior pharyngeal wall. The vallecula was cleared. The posterior vocal cords were seen with normal adduction of vocal cords, however, anterior commissure and pyriform sinus were unable to visualized because the patient is uncooperative and unable to perform maneuvers. There are no obvious masses seen in the epiglottis or supraglottic space. The scope was then removed and under direct visualization. The patient tolerated the procedure with no complication. VITAL SIGNS: Temperature 98.5, pulse 80, respiratory rate 21, blood pressure 120/63, pulse ox 98% on room air. LABORATORY DATA: WBC 12.2, hemoglobin 15.6, hematocrit 42.8, platelet 162. PT 10.9, INR 1.01. APTT 26.4. ASSESSMENT: This is a 61-year-old male with past medical history of hypertension, hyperlipidemia and previous cerebrovascular accident, who comes in with altered mental status and noted to have a hoarse voice. We are consulted to rule out laryngeal mass. PLAN: The patient exam are normal using flexible laryngoscope; however, the patient unable to cooperate with maneuvers and full exam unable to be completed. We recommend that the patient followup is outpatient and to re-scope in 4 to 6 weeks. No obvious masses. No intervention at this time. Thanks for the consultation. Please re-consult as needed. Sb Mcdonough DO
--- NOTE | 2016-12-19 05:42 | CP.PCM.PN ---
Subjective - Date & Time of Evaluation Date of Evaluation: 12/19/16 Time of Evaluation: 05:28 - Subjective Subjective: It was requested to renew restraint order. Patient is quiet now. Gets agitated intermittently. Medical record was reveiwed. This 61 year old male was admitted with altered mental status. Has PMH of HTN, DM II, COPD. Objective - Vital Signs/Intake and Output Vital Signs (last 24 hours): Temp Pulse Resp BP Pulse Ox 98.7 F 59 L 19 135/58 L 61 L 12/19/16 00:00 12/19/16 03:20 12/19/16 03:20 12/19/16 02:01 12/19/16 01:57 Intake and Output: 12/18/16 12/19/16 18:59 06:59 Intake Total 150 583 Output Total 1050 Balance 150 -467 - Medications Medications: Current Medications Albuterol/Ipratropium (Duoneb 3 Mg/0.5 Mg (3 Ml) Ud) 3 ml IH Q4H PRN PRN Reason: Shortness of Breath Aspirin (Ecotrin) [address] [facility] Last Admin: 12/18/16 10:46 Dose: 81 mg Atorvastatin Calcium (Lipitor) [address] [facility] Last Admin: 12/18/16 17:46 Dose: 80 mg Heparin Sodium/Dextrose (Heparin 25,000 Units/250ml In D5w) 25,000 units in 250 mls @ 11.757 mls/hr IV .[id number] PRN; Protocol; 18 UNITS/KG/HR PRN Reason: ADJUST RATE PER PROTOCOL Last Admin: 12/18/16 16:00 Dose: 22 units/kg/hr, 14.37 mls/hr Insulin Human Regular (Humulin R High) [address] [facility] PRN Reason: Protocol Last Admin: 12/18/16 23:19 Dose: Not Given Thiamine HCl (Vitamin B1 Inj) [address] [facility] Last Admin: 12/18/16 10:44 Dose: 100 mg - Labs Labs: PT 10.9 Seconds (9.9-11.8) 12/16/16 21:15 INR 1.01 (0.93-1.08) 12/16/16 21:15 APTT 61.5 Seconds (23.7-30.8) H 12/19/16 04:00 Micro Results 12/16/16 22:05 Blood-Venous Blood Culture - Preliminary NO GROWTH AFTER 48 HOURS 12/16/16 22:05 Blood-Venous Blood Culture - Preliminary NO GROWTH AFTER 48 HOURS 12/17/16 07:01 Nose MRSA Culture (Admit) - Final MRSA NOT DETECTED 12/17/16 03:00 Urine,Clean Catch Urine Culture - Final No Growth (<1,000 CFU/ML) Most Recent Lab Values WBC 12.2 10^3/ul (4.5-11.0) H 12/16/16 21:15 RBC 4.87 10^6/uL (3.5-6.1) 12/16/16 21:15 Hgb 15.6 g/dL (14.0-18.0) 12/16/16 21:15 Hct 43.8 % (42.0-52.0) 12/16/16 21:15 MCV 89.9 fl (80.0-105.0) 12/16/16 21:15 MCH 32.0 pg (25.0-35.0) 12/16/16 21:15 MCHC 35.6 g/dl (31.0-37.0) 12/16/16 21:15 RDW 13.2 % (11.5-14.5) 12/16/16 21:15 Plt Count 162 10^3/uL (120.0-450.0) 12/16/16 21:15 MPV 10.7 fl (7.0-11.0) 12/16/16 21:15 Gran % 74.3 % (50.0-68.0) H 12/16/16 21:15 Lymph % (Auto) 18.2 % (22.0-35.0) L 12/16/16 21:15 [place] % (Auto) 6.7 % (1.0-6.0) H 12/16/16 21:15 Eos % (Auto) 0.6 % (1.5-5.0) L 12/16/16 21:15 Baso % (Auto) 0.2 % (0.0-3.0) 12/16/16 21:15 Gran # 9.08 (1.4-6.5) H 12/16/16 21:15 Lymph # 2.2 (1.2-3.4) 12/16/16 21:15 [place] # 0.8 (0.1-0.6) H 12/16/16 21:15 Eos # 0.1 (0.0-0.7) 12/16/16 21:15 Baso # 0.03 K/mm3 (0.0-2.0) 12/16/16 21:15 PT 10.9 Seconds (9.9-11.8) 12/16/16 21:15 INR 1.01 (0.93-1.08) 12/16/16 21:15 APTT 61.5 Seconds (23.7-30.8) H 12/19/16 04:00 pCO2 43 mm/Hg (35-45) 12/16/16 23:47 pO2 54.0 mm/Hg (80-100) L 12/16/16 23:47 HCO3 27.9 mmol/L (21-28) 12/16/16 23:47 ABG pH 7.42 (7.35-7.45) 12/16/16 23:47 ABG Total CO2 29.2 mmol.L (22-28) H 12/16/16 23:47 ABG O2 Saturation 96.0 % (95-98) 12/16/16 23:47 ABG O2 Content 15.8 ML/dl (15-23) 12/16/16 23:47 ABG Base Excess 2.9 mmol/L (-2.0-3.0) 12/16/16 23:47 ABG Hemoglobin 14.5 g/dL (11.7-17.4) 12/16/16 23:47 ABG Carboxyhemoglobin 18.4 % (0.5-1.5) H 12/16/16 23:47 POC ABG HHb (Measured) 3.2 % (0-5) 12/16/16 23:47 ABG Methemoglobin 1.0 % (0.0-3.0) 12/16/16 23:47 ABG O2 Capacity 16.5 mL/dl (16-24) 12/16/16 23:47 Hgb O2 Saturation 77.4 % (95.0-98.0) L 12/16/16 23:47 FiO2 21.0 % 12/16/16 23:47 Sodium 137 mmol/L (132-148) 12/16/16 21:15 Potassium 3.6 mmol/L (3.6-5.0) 12/16/16 21:15 Chloride 100 mmol/L (98-107) 12/16/16 21:15 Carbon Dioxide 26 mmol/L (21-33) 12/16/16 21:15 Anion Gap 15 (10-20) 12/16/16 21:15 BUN 11 mg/dL (7-21) 12/16/16 21:15 Creatinine 0.6 mg/dL (0.5-1.4) 12/16/16 21:15 Est GFR ( Amer) > 60 12/16/16 21:15 Est GFR (Non-Af Amer) > 60 12/16/16 21:15 POC Glucose (mg/dL) 165 mg/dL (65-110) H 12/18/16 22:50 Random Glucose 298 mg/dL (70-110) H 12/16/16 21:15 Hemoglobin A1c 15.1 % (4.2-6.5) H 12/17/16 11:00 Calcium 9.4 mg/dL (8.4-10.5) 12/16/16 21:15 Phosphorus 3.5 mg/dL (2.5-4.5) 12/16/16 21:15 Magnesium 1.7 mg/dL (1.7-2.2) 12/16/16 21:15 Total Bilirubin 0.5 mg/dL (0.2-1.3) 12/16/16 21:15 AST 21 U/L (17-59) 12/16/16 21:15 ALT 20 U/L (7-56) 12/16/16 21:15 Alkaline Phosphatase 177 U/L (38-126) H 12/16/16 21:15 Ammonia < 9 umol/L (9-33) L 12/16/16 22:05 Lactate Dehydrogenase 453 U/L (333-699) 12/16/16 21:15 Total Creatine Kinase 49 U/L (35-230) 12/16/16 21:15 Troponin I < 0.01 ng/mL 12/16/16 21:15 Total Protein 6.8 g/dL (5.8-8.3) 12/16/16 21:15 Albumin 4.3 g/dL (3.0-4.8) 12/16/16 21:15 Globulin 2.5 gm/dL 12/16/16 21:15 Albumin/Globulin Ratio 1.7 (1.1-1.8) 12/16/16 21:15 Triglycerides 127 mg/dL (35-160) 12/18/16 10:30 Cholesterol 158 mg/dL (130-200) 12/18/16 10:30 LDL Cholesterol Direct 98 mg/dL (0-129) 12/18/16 10:30 HDL Cholesterol 41 mg/dL (29-60) 12/18/16 10:30 Urine Color Yellow (YELLOW) 12/17/16 03:00 Urine Appearance Clear (CLEAR) 12/17/16 03:00 Urine pH 7.0 (4.7-8.0) 12/17/16 03:00 Ur Specific [place] 1.015 (1.005-1.035) 12/17/16 03:00 Urine Protein Negative mg/dL (<30 mg/dL) 12/17/16 03:00 Urine Glucose (UA) >=1000 mg/dL (NEGATIVE) 12/17/16 03:00 Urine Ketones Trace mg/dL (NEGATIVE) H 12/17/16 03:00 Urine Blood Negative (NEGATIVE) 12/17/16 03:00 Urine Nitrate Negative (NEGATIVE) 12/17/16 03:00 Urine Bilirubin Negative (NEGATIVE) 12/17/16 03:00 Urine Urobilinogen 0.2 E.U./dL (<1 E.U./dL) 12/17/16 03:00 Ur Leukocyte Esterase Negative Kevin/uL (NEGATIVE) 12/17/16 03:00 Urine Opiates Screen Negative (NEGATIVE) 12/17/16 03:00 Urine Methadone Screen Negative (NEGATIVE) 12/17/16 03:00 Acetaminophen < 10.0 ug/ml (10.0-20.0) L 12/16/16 21:15 Ur Barbiturates Screen Negative (NEGATIVE) 12/17/16 03:00 Ur Phencyclidine Scrn Negative (NEGATIVE) 12/17/16 03:00 Ur Amphetamines Screen Negative (NEGATIVE) 12/17/16 03:00 U Benzodiazepines Scrn Positive (NEGATIVE) 12/17/16 03:00 U Oth Cocaine Metabols Negative (NEGATIVE) 12/17/16 03:00 U Cannabinoids Screen Negative (NEGATIVE) 12/17/16 03:00 Alcohol, Quantitative < 10 mg/dL (0-10) 12/16/16 21:15 - Constitutional Appears: Well, No Acute Distress - Head Exam Head Exam: ATRAUMATIC, NORMAL INSPECTION, NORMOCEPHALIC - Eye Exam Eye Exam: Normal appearance - ENT Exam ENT Exam: Normal External Ear Exam - Neck Exam Neck Exam: Normal Inspection - Respiratory Exam Respiratory Exam: NORMAL BREATHING PATTERN - Cardiovascular Exam Cardiovascular Exam: absent: JVD - GI/Abdominal Exam GI & Abdominal Exam: absent: Distended - Rectal Exam Rectal Exam: Deferred - Exam Additional comments: Deferred. - Extremities Exam Extremities Exam: Normal Inspection - Back Exam Back Exam: NORMAL INSPECTION - Neurological Exam Neurological Exam: Alert - Psychiatric Exam Psychiatric exam: Normal Affect, Normal Mood - Skin Skin Exam: Normal Color Assessment and Plan - Assessment and Plan (Free Text) Assessment: Intermittent agitation. AMS. HTN. DM II. COPD. Plan: Restraint order renewed. Continue present management.
--- NOTE | 2016-12-19 08:07 | CP.PCM.PN ---
<Pari Menjivar - Last Filed: 12/19/16 10:38> Subjective - Date & Time of Evaluation Date of Evaluation: 12/19/16 Time of Evaluation: 08:04 - Subjective Subjective: Neurology Progress Note for Jayden Rome PGY2 Patient seen and examined at beside. Overnight, patient was confused and restraints were ordered. This am, patient is resting comfortably in bed. His aphasia has resolved as well as his mental status. He is alert to person and place. He denies CP, SOB, pain, n/v/d, numbness/tingling, weakness or vision changes. Objective - Vital Signs/Intake and Output Vital Signs (last 24 hours): Temp Pulse Resp BP Pulse Ox 98.3 F 61 26 H 135/58 L 61 L 12/19/16 04:00 12/19/16 06:40 12/19/16 06:40 12/19/16 02:01 12/19/16 01:57 Intake and Output: 12/19/16 12/19/16 06:59 18:59 Intake Total 875 Output Total 1370 Balance -495 - Medications Medications: Current Medications Albuterol/Ipratropium (Duoneb 3 Mg/0.5 Mg (3 Ml) Ud) 3 ml IH Q4H PRN PRN Reason: Shortness of Breath Aspirin (Ecotrin) 81 mg PO DAILY [facility] Last Admin: 12/18/16 10:46 Dose: 81 mg Atorvastatin Calcium (Lipitor) 80 mg PO DIN [facility] Last Admin: 12/18/16 17:46 Dose: 80 mg Heparin Sodium/Dextrose (Heparin 25,000 Units/250ml In D5w) 25,000 units in 250 mls @ 11.757 mls/hr IV .[id number] PRN; Protocol; 18 UNITS/KG/HR PRN Reason: ADJUST RATE PER PROTOCOL Last Admin: 12/18/16 16:00 Dose: 22 units/kg/hr, 14.37 mls/hr Insulin Human Regular (Humulin R High) 0 units SC ACHS [facility] PRN Reason: Protocol Last Admin: 12/18/16 23:19 Dose: Not Given Thiamine HCl (Vitamin B1 Inj) 100 mg IM BID [facility] Last Admin: 12/18/16 10:44 Dose: 100 mg - Labs Labs: PT 10.9 Seconds (9.9-11.8) 12/16/16 21:15 INR 1.01 (0.93-1.08) 12/16/16 21:15 APTT 61.5 Seconds (23.7-30.8) H 12/19/16 04:00 - Constitutional Appears: No Acute Distress - Head Exam Head Exam: ATRAUMATIC, NORMAL INSPECTION, NORMOCEPHALIC - Eye Exam Eye Exam: Normal appearance, PERRL Pupil Exam: NORMAL ACCOMODATION, PERRL - ENT Exam ENT Exam: Mucous Membranes Moist - Respiratory Exam Respiratory Exam: Clear to Ausculation Bilateral, NORMAL BREATHING PATTERN. absent: Rales, Rhonchi, Wheezes - Cardiovascular Exam Cardiovascular Exam: REGULAR RHYTHM, +S1, +S2. absent: Gallop, Rubs, Murmur - GI/Abdominal Exam GI & Abdominal Exam: Soft, Normal Bowel Sounds. absent: Rigid, Tenderness, Mass , Rebound - Extremities Exam Extremities Exam: Normal Inspection. absent: Calf Tenderness, Pedal Edema Additional comments: L foot slightly colder than R - Neurological Exam Neurological Exam: Alert, Awake, CN II-XII Intact. absent: Oriented x3 Neuro motor strength exam: Left Upper Extremity: 5, Right Upper Extremity: 5, Left Lower Extremity: 5, Right Lower Extremity: 5 Additional comments: No pronator drift noted. - Psychiatric Exam Psychiatric exam: Normal Affect, Normal Mood - Skin Skin Exam: Dry, Intact, Normal Color, Warm Assessment and Plan - Assessment and Plan (Free Text) Assessment: This is a 61Y M with PMH HTN, DM, HLD, DVT, anxiety who was brought to ED for AMS. Head CT showed L chronic focal encephalomalacia of cerebellum. MRI showed multiple acute cortical and subcortical infarcts in the L frontal lobe. MRA Head showed lack of anterograde flow of the middle cerebral arteries bilaterally. 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 HgbA1c was noted to be 15.1. AMS secondary to L frontal CVA which is secondary to L ICA stenosis with uncontrolled underlying risk factors including uncontrolled diabetes as well as atherosclerosis. Patient was scheduled for angioplasty of L SFA by Dr. Navarro. Due to his recent CVA, Dr. Navarro will hold off surgery for a few days and keep patient on Heparin drip. Plan: - 1:1 and restraints if patient agitated- avoid sedating medications - Recommend Cardiology evaluation - Recommend ASA, Plavix - Maintain euglycemia (140-180s) - Recommend Metformin (HgbA1c: 15.1) - Lipitor 80mg for 3 weeks then decrease to Lipitor 40mg - Continue Physical therapy and Speech therapy Patient reports he has not next of kin and lives alone. Recommend MAXINE. Patient should follow up with Dr. Hays as outpatient as well. Case seen, discussed and reviewed with Dr. Hays. Jayden Menjivar PGY2 <Vicente Hays - Last Filed: 12/19/16 14:10> Objective - Vital Signs/Intake and Output Vital Signs (last 24 hours): Temp Pulse Resp BP Pulse Ox 98.3 F 71 43 H 123/67 61 L 12/19/16 04:00 12/19/16 08:50 12/19/16 08:40 12/19/16 08:00 12/19/16 01:57 Intake and Output: 12/19/16 12/19/16 06:59 18:59 Intake Total 875 250 Output Total 1370 Balance -495 250 - Medications Medications: Current Medications Albuterol/Ipratropium (Duoneb 3 Mg/0.5 Mg (3 Ml) Ud) 3 ml IH Q4H PRN PRN Reason: Shortness of Breath Aspirin (Ecotrin) 81 mg PO DAILY [facility] Last Admin: 12/19/16 09:17 Dose: 81 mg Atorvastatin Calcium (Lipitor) 80 mg PO DIN [facility] Last Admin: 12/18/16 17:46 Dose: 80 mg Heparin Sodium/Dextrose (Heparin 25,000 Units/250ml In D5w) 25,000 units in 250 mls @ 11.757 mls/hr IV .[id number] PRN; Protocol; 18 UNITS/KG/HR PRN Reason: ADJUST RATE PER PROTOCOL Last Admin: 12/19/16 09:14 Dose: 22 units/kg/hr, 14.37 mls/hr Insulin Human Regular (Humulin R High) 0 units SC ACHS [facility] PRN Reason: Protocol Last Admin: 12/19/16 11:57 Dose: 7 units Thiamine HCl (Vitamin B1 Inj) 100 mg IM BID [facility] Last Admin: 12/19/16 09:17 Dose: 100 mg - Labs Labs: PT 10.9 Seconds (9.9-11.8) 12/16/16 21:15 INR 1.01 (0.93-1.08) 12/16/16 21:15 APTT 61.5 Seconds (23.7-30.8) H 12/19/16 04:00 Attending/Attestation - Attestation I have personally seen and examined this patient.: Yes I have fully participated in the care of the patient.: Yes I have reviewed all pertinent clinical information, including history, physical exam and plan: Yes
[2016-12-19] MEDS: Insulin Reg-HIGH-Coverage SC SCH ×3 (08:40→17:12)
[2016-12-19] MEDS: Heparin 25,000units in D5W 25,000 UNITS/250 ML BAG IV PRN (09:14)
[2016-12-19] MEDS: Thiamine 100 mg/ml Inj IM SCH ×2 (09:17→17:15)
--- NOTE | 2016-12-19 12:43 | CP.PCM.PN ---
Subjective - Date & Time of Evaluation Date of Evaluation: 12/19/16 Time of Evaluation: 13:30 - Subjective Subjective: NAD, no cp, no SOB Objective - Vital Signs/Intake and Output Vital Signs (last 24 hours): Temp Pulse Resp BP Pulse Ox 98.3 F 71 43 H 123/67 61 L 12/19/16 04:00 12/19/16 08:50 12/19/16 08:40 12/19/16 08:00 12/19/16 01:57 Intake and Output: 12/19/16 12/19/16 06:59 18:59 Intake Total 875 250 Output Total 1370 Balance -495 250 - Medications Medications: Current Medications Albuterol/Ipratropium (Duoneb 3 Mg/0.5 Mg (3 Ml) Ud) 3 ml IH Q4H PRN PRN Reason: Shortness of Breath Aspirin (Ecotrin) 81 mg PO DAILY [facility] Last Admin: 12/19/16 09:17 Dose: 81 mg Atorvastatin Calcium (Lipitor) 80 mg PO DIN [facility] Last Admin: 12/18/16 17:46 Dose: 80 mg Heparin Sodium/Dextrose (Heparin 25,000 Units/250ml In D5w) 25,000 units in 250 mls @ 11.757 mls/hr IV .[id number] PRN; Protocol; 18 UNITS/KG/HR PRN Reason: ADJUST RATE PER PROTOCOL Last Admin: 12/19/16 09:14 Dose: 22 units/kg/hr, 14.37 mls/hr Insulin Human Regular (Humulin R High) 0 units SC ACHS [facility] PRN Reason: Protocol Last Admin: 12/19/16 11:57 Dose: 7 units Thiamine HCl (Vitamin B1 Inj) 100 mg IM BID [facility] Last Admin: 12/19/16 09:17 Dose: 100 mg - Labs Labs: PT 10.9 Seconds (9.9-11.8) 12/16/16 21:15 INR 1.01 (0.93-1.08) 12/16/16 21:15 APTT 61.5 Seconds (23.7-30.8) H 12/19/16 04:00 - Respiratory Exam Respiratory Exam: Clear to Ausculation Bilateral, NORMAL BREATHING PATTERN - Cardiovascular Exam Cardiovascular Exam: REGULAR RHYTHM - GI/Abdominal Exam GI & Abdominal Exam: Soft, Normal Bowel Sounds - Extremities Exam Extremities Exam: Normal Inspection - Neurological Exam Neurological Exam: Alert, Awake - Skin Skin Exam: Dry, Warm Assessment and Plan (1) Altered mental status Status: Acute (2) COPD (chronic obstructive pulmonary disease) Status: Chronic (3) Type II diabetes mellitus Status: Chronic (4) Hypertension Status: Chronic (5) Hoarseness of voice Status: Chronic (6) CVA (cerebral vascular accident) Status: Acute (7) Carotid artery occlusion with cerebral infarction Status: Acute - Assessment and Plan (Free Text) Plan: continue present rx, speech eval, SW for disposition
[2016-12-20] MEDS: Heparin 25,000units in D5W 25,000 UNITS/250 ML BAG IV PRN ×2 (05:08→22:33)
[2016-12-20] MEDS: Insulin Reg-HIGH-Coverage SC SCH ×5 (05:27→22:33)
--- NOTE | 2016-12-20 06:44 | CP.PCM.PN ---
<Pari Menjivar - Last Filed: 12/20/16 12:36> Subjective - Date & Time of Evaluation Date of Evaluation: 12/20/16 Time of Evaluation: 06:43 - Subjective Subjective: Neurology Progress Note for Jayden Rome PGY2 Patient seen and examined at beside. Patient was non-verbal to this nurse overnight, but was responding appropriately this morning. However he is still confused and only oriented to person. He denies CP, SOB, pain, n/v/d, numbness/ tingling, weakness or vision changes. Objective - Vital Signs/Intake and Output Vital Signs (last 24 hours): Temp Pulse Resp BP Pulse Ox 98 F 63 20 131/67 96 12/20/16 05:45 12/20/16 05:45 12/20/16 05:45 12/20/16 05:45 12/20/16 05:45 Intake and Output: 12/19/16 12/20/16 18:59 06:59 Intake Total 902 436 Output Total 1025 250 Balance -123 186 - Medications Medications: Current Medications Albuterol/Ipratropium (Duoneb 3 Mg/0.5 Mg (3 Ml) Ud) 3 ml IH Q4H PRN PRN Reason: Shortness of Breath Aspirin (Ecotrin) 81 mg PO DAILY [facility] Last Admin: 12/19/16 09:17 Dose: 81 mg Atorvastatin Calcium (Lipitor) 80 mg PO DIN [facility] Last Admin: 12/19/16 17:15 Dose: 80 mg Heparin Sodium/Dextrose (Heparin 25,000 Units/250ml In D5w) 25,000 units in 250 mls @ 11.757 mls/hr IV .[id number] PRN; Protocol; 18 UNITS/KG/HR PRN Reason: ADJUST RATE PER PROTOCOL Last Admin: 12/20/16 05:08 Dose: 22 units/kg/hr, 14.37 mls/hr Insulin Human Regular (Humulin R High) 0 units SC ACHS [facility] PRN Reason: Protocol Last Admin: 12/20/16 05:27 Dose: Not Given Thiamine HCl (Vitamin B1 Inj) 100 mg IM BID [facility] Last Admin: 12/19/16 17:15 Dose: 100 mg - Labs Labs: PT 10.9 Seconds (9.9-11.8) 12/16/16 21:15 INR 1.01 (0.93-1.08) 12/16/16 21:15 APTT 61.5 Seconds (23.7-30.8) H 12/20/16 06:00 - Constitutional Appears: No Acute Distress - Head Exam Head Exam: ATRAUMATIC, NORMAL INSPECTION, NORMOCEPHALIC - Eye Exam Eye Exam: Normal appearance, PERRL Pupil Exam: NORMAL ACCOMODATION, PERRL - ENT Exam ENT Exam: Mucous Membranes Moist - Respiratory Exam Respiratory Exam: Clear to Ausculation Bilateral, NORMAL BREATHING PATTERN. absent: Rales, Rhonchi, Wheezes - Cardiovascular Exam Cardiovascular Exam: REGULAR RHYTHM, +S1, +S2. absent: Gallop, Rubs, Murmur - GI/Abdominal Exam GI & Abdominal Exam: Soft, Normal Bowel Sounds. absent: Rigid, Tenderness, Mass , Rebound - Extremities Exam Extremities Exam: Full ROM, Normal Capillary Refill, Normal Inspection. absent : Calf Tenderness, Pedal Edema - Neurological Exam Neurological Exam: Alert, Awake. absent: Oriented x3 Neuro motor strength exam: Left Upper Extremity: 5, Right Upper Extremity: 5, Left Lower Extremity: 5, Right Lower Extremity: 5 - Psychiatric Exam Psychiatric exam: Normal Affect, Normal Mood - Skin Skin Exam: Dry, Intact, Normal Color, Warm Assessment and Plan - Assessment and Plan (Free Text) Assessment: This is a 61Y M with PMH HTN, DM, HLD, DVT, anxiety who was brought to ED for AMS. Head CT showed L chronic focal encephalomalacia of cerebellum. MRI showed multiple acute cortical and subcortical infarcts in the L frontal lobe. MRA Head showed lack of anterograde flow of the middle cerebral arteries bilaterally. 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 HgbA1c was noted to be 15.1. AMS secondary to L frontal CVA which is secondary to L ICA stenosis with uncontrolled underlying risk factors including uncontrolled diabetes as well as atherosclerosis. Patient was scheduled for angioplasty of L SFA by Dr. Navarro. I spoke with Dr. Navarro who states due to pt recent CVA, he will hold off surgery at this point. Plan: - Recommend Cardiology Evaluation - Recommend 1:1 and/or restraints for confusion - Avoid Sedating medications - Recommend Metformin along with ISS for uncontrolled DM - Recommend ASA and Plavix - Continue to maintain euglycemia (140-180) - Lipitor 80mg x 3 weeks then 40mg daily - Continue physical therapy/speech therapy/occupational therapy PT recommends acute rehab. It is recommended that patient should follow up with Dr. Hays as outpatient as well. Case seen, discussed and reviewed with Dr. Hays. Jayden Menjivar PGY2 <Vicente Hays - Last Filed: 12/20/16 13:50> Objective - Vital Signs/Intake and Output Vital Signs (last 24 hours): Temp Pulse Resp BP Pulse Ox 97.1 F L 77 20 127/84 96 12/20/16 12:00 12/20/16 12:00 12/20/16 12:00 12/20/16 12:00 12/20/16 05:45 Intake and Output: 12/20/16 12/20/16 06:59 18:59 Intake Total 436 Output Total 250 Balance 186 - Medications Medications: Current Medications Albuterol/Ipratropium (Duoneb 3 Mg/0.5 Mg (3 Ml) Ud) 3 ml IH Q4H PRN PRN Reason: Shortness of Breath Aspirin (Ecotrin) 81 mg PO DAILY [facility] Last Admin: 12/20/16 10:59 Dose: 81 mg Atorvastatin Calcium (Lipitor) 80 mg PO DIN [facility] Last Admin: 12/19/16 17:15 Dose: 80 mg Heparin Sodium/Dextrose (Heparin 25,000 Units/250ml In D5w) 25,000 units in 250 mls @ 11.757 mls/hr IV .[id number] PRN; Protocol; 18 UNITS/KG/HR PRN Reason: ADJUST RATE PER PROTOCOL Last Admin: 12/20/16 05:08 Dose: 22 units/kg/hr, 14.37 mls/hr Insulin Human Regular (Humulin R High) 0 units SC ACHS [facility] PRN Reason: Protocol Last Admin: 12/20/16 12:33 Dose: 4 units Thiamine HCl (Vitamin B1 Inj) 100 mg IM BID [facility] Last Admin: 12/20/16 10:59 Dose: 100 mg - Labs Labs: 12/20/16 09:15 12/20/16 09:12 PT 11.7 Seconds (9.9-11.8) 12/20/16 09:13 INR 1.08 (0.93-1.08) 12/20/16 09:13 APTT 61.5 Seconds (23.7-30.8) H 12/20/16 06:00 Attending/Attestation - Attestation I have personally seen and examined this patient.: Yes I have fully participated in the care of the patient.: Yes I have reviewed all pertinent clinical information, including history, physical exam and plan: Yes
[2016-12-20 09:27] LABS: BASO # 0.02 K/mm3 (0.0-2.0); BASO % 0.2 % (0.0-3.0); EOS # 0.1 (0.0-0.7); EOS % 1.2 % (1.5-5.0); GRAN # 6.14 (1.4-6.5); GRAN % 66.2 % (50.0-68.0); LYMPH # 2.4 (1.2-3.4); LYMPH % 25.4 % (22.0-35.0); MEAN CELL VOLUME 90.4 fl (80.0-105.0); MEAN CORPUSCULAR HGB CONC 34.3 g/dl (31.0-37.0); MEAN PLATELET VOLUME 11.5 fl (7.0-11.0); MONO # 0.7 (0.1-0.6); RED CELL DISTRIBUTION WIDTH 13.4 % (11.5-14.5); WHITE BLOOD COUNT 9.3 10^3/ul (4.5-11.0)
[2016-12-20 09:32] LABS: INR 1.08 (0.93-1.08)
[2016-12-20 09:37] LABS: ALB/GLOB RATIO 1.7 (1.1-1.8); ALKALINE PHOSPHATASE 114 U/L (38-126); ALT/SGPT 27 U/L (7-56); AST/SGOT 18 U/L (17-59); BILIRUBIN,TOTAL 0.7 mg/dL (0.2-1.3); BLOOD UREA NITROGEN 16 mg/dL (7-21); CALCIUM 9.5 mg/dL (8.4-10.5); CARBON DIOXIDE 29 mmol/L (21-33); CHLORIDE 97 mmol/L (95-110); GFR AFRICAN-AMERICAN > 60; GLUCOSE,RANDOM 188 mg/dL (70-110); POTASSIUM 3.4 mmol/L (3.6-5.0); SODIUM 138 mmol/L (132-148); TOTAL PROTEIN 6.2 g/dL (5.8-8.3)
[2016-12-20] MEDS: Thiamine 100 mg/ml Inj IM SCH (10:59)
--- NOTE | 2016-12-20 17:29 | CP.PCM.PN ---
Subjective - Date & Time of Evaluation Date of Evaluation: 12/20/16 Time of Evaluation: 13:00 - Subjective Subjective: NAD Objective - Vital Signs/Intake and Output Vital Signs (last 24 hours): Temp Pulse Resp BP Pulse Ox 97.1 F L 77 20 127/84 96 12/20/16 12:00 12/20/16 12:00 12/20/16 12:00 12/20/16 12:00 12/20/16 05:45 Intake and Output: 12/20/16 12/20/16 06:59 18:59 Intake Total 436 Output Total 250 Balance 186 - Medications Medications: Current Medications Albuterol/Ipratropium (Duoneb 3 Mg/0.5 Mg (3 Ml) Ud) 3 ml IH Q4H PRN PRN Reason: Shortness of Breath Aspirin (Ecotrin) 81 mg PO DAILY [facility] Last Admin: 12/20/16 10:59 Dose: 81 mg Atorvastatin Calcium (Lipitor) 80 mg PO DIN [facility] Last Admin: 12/19/16 17:15 Dose: 80 mg Heparin Sodium/Dextrose (Heparin 25,000 Units/250ml In D5w) 25,000 units in 250 mls @ 11.757 mls/hr IV .[id number] PRN; Protocol; 18 UNITS/KG/HR PRN Reason: ADJUST RATE PER PROTOCOL Last Admin: 12/20/16 05:08 Dose: 22 units/kg/hr, 14.37 mls/hr Insulin Human Regular (Humulin R High) 0 units SC ACHS [facility] PRN Reason: Protocol Last Admin: 12/20/16 12:33 Dose: 4 units Potassium Chloride (K-Dur 20 Meq Er Tab) 20 meq PO BRK [facility] Thiamine HCl (Vitamin B1 Tab) 100 mg PO BID [facility] - Labs Labs: 12/20/16 09:15 12/20/16 09:12 PT 11.7 Seconds (9.9-11.8) 12/20/16 09:13 INR 1.08 (0.93-1.08) 12/20/16 09:13 APTT 61.5 Seconds (23.7-30.8) H 12/20/16 06:00 - Respiratory Exam Respiratory Exam: Clear to Ausculation Bilateral, NORMAL BREATHING PATTERN - Cardiovascular Exam Cardiovascular Exam: REGULAR RHYTHM - GI/Abdominal Exam GI & Abdominal Exam: Soft, Normal Bowel Sounds - Extremities Exam Extremities Exam: Full ROM - Neurological Exam Neurological Exam: Alert, Awake - Skin Skin Exam: Dry, Normal Color Assessment and Plan (1) Altered mental status Status: Acute (2) COPD (chronic obstructive pulmonary disease) Status: Chronic (3) Type II diabetes mellitus Status: Chronic (4) Hypertension Status: Chronic (5) Hoarseness of voice Status: Chronic (6) CVA (cerebral vascular accident) Status: Acute (7) Carotid artery occlusion with cerebral infarction Status: Acute - Assessment and Plan (Free Text) Plan: continue anticoag, cardiac eval
--- NOTE | 2016-12-20 17:37 | CARD ---
APPROVED REPORT EXAM: Two-dimensional and M-mode echocardiogram with Doppler and color Doppler. INDICATION CVA/TIA Thrombus 2D DIMENSIONS Left Atrium (2D)3.1 (1.6-4.0cm)IVSd1.2 (0.7-1.1cm) LVDd4.2 (3.9-5.9cm)PWd1.0 (0.7-1.1cm) LVDs3.1 (2.5-4.0cm)FS (%) 26.3 % LVEF (%)51.9 (>50%) M-Mode DIMENSIONS Aortic Root3.60 (2.2-3.7cm)Aortic Cusp Exc.1.50 (1.5-2.0cm) Aortic Valve AoV Peak Lwfrnvjv454.0cm/[place] Peak GR.11mmHg Mitral Valve MV E Zbiffnjq06.4cm/sMV A Ufkyejjw17.6cm/sE/A ratio0.5 TDI E/Lateral E'0.0E/Medial E'0.0 Tricuspid Valve TR Peak Vwapgdir043nh/sRAP [id number] Peak Gr.14mmHg [id number] LEFT VENTRICLE The left ventricle is normal size. There is borderline concentric left ventricular hypertrophy. The left ventricular function is normal. The left ventricular ejection fraction is within the normal range. There is normal LV segmental wall motion. Transmitral Doppler flow pattern is Grade I-abnormal relaxation pattern. RIGHT VENTRICLE The right ventricle is normal size. There is normal right ventricular wall thickness. The right ventricular systolic function is normal. ATRIA The left atrium size is normal. The right atrium size is normal. AORTIC VALVE The aortic valve is moderately thickened. There is no aortic valvular stenosis. MITRAL VALVE The mitral valve is mildly thickened. There is no mitral valve stenosis. TRICUSPID VALVE The tricuspid valve is normal in structure. There is no tricuspid valve regurgitation noted. GREAT VESSELS The aortic root is normal in size. <Conclusion> The left ventricle is normal size. There is borderline concentric left ventricular hypertrophy. The left ventricular function is normal. The left ventricular ejection fraction is within the normal range. There is normal LV segmental wall motion. Transmitral Doppler flow pattern is Grade I-abnormal relaxation pattern. The aortic valve is moderately thickened. No thrombus seen
[2016-12-20] MEDS: Potassium Chloride 20 mEq ER Tab PO SCH (18:54)
[2016-12-21 06:24] LABS: BASO # 0.01 K/mm3 (0.0-2.0); BASO % 0.1 % (0.0-3.0); EOS # 0.1 (0.0-0.7); EOS % 1.2 % (1.5-5.0); GRAN # 5.13 (1.4-6.5); GRAN % 64.2 % (50.0-68.0); HEMATOCRIT 48.3 % (42.0-52.0); LYMPH # 2.1 (1.2-3.4); LYMPH % 25.8 % (22.0-35.0); MEAN CELL VOLUME 90.1 fl (80.0-105.0); MEAN CORPUSCULAR HEMOGLOBIN 31.3 pg (25.0-35.0); MEAN CORPUSCULAR HGB CONC 34.8 g/dl (31.0-37.0); MEAN PLATELET VOLUME 10.9 fl (7.0-11.0); MONO # 0.7 (0.1-0.6); MONO % 8.7 % (1.0-6.0); RED CELL DISTRIBUTION WIDTH 13.5 % (11.5-14.5)
[2016-12-21 06:59] LABS: ALB/GLOB RATIO 1.6 (1.1-1.8); ALKALINE PHOSPHATASE 119 U/L (38-126); ALT/SGPT 26 U/L (7-56); AST/SGOT 26 U/L (17-59); BILIRUBIN,TOTAL 0.7 mg/dL (0.2-1.3); BLOOD UREA NITROGEN 14 mg/dL (7-21); CALCIUM 9.8 mg/dL (8.4-10.5); CARBON DIOXIDE 31 mmol/L (21-33); CHLORIDE 98 mmol/L (95-110); CHOLESTEROL 165 mg/dL (130-200); GFR AFRICAN-AMERICAN > 60; GLUCOSE,RANDOM 242 mg/dL (70-110); MAGNESIUM 1.9 mg/dL (1.7-2.2); PHOSPHOROUS 3.8 mg/dL (2.5-4.5); POTASSIUM 4.1 mmol/L (3.6-5.0); SODIUM 138 mmol/L (132-148); TOTAL PROTEIN 6.5 g/dL (5.8-8.3)
--- NOTE | 2016-12-21 08:09 | CON ---
DATE: CONSULT SERVICE: Cardiology. REASON FOR CONSULTATION: Cardiac evaluation, history of severe peripheral arterial disease and admitted with altered mental status. BRIEF CLINICAL HISTORY: This is a 61-year-old male with past medical history significant for diabetes, hypertension, hyperlipidemia, CVA, admitted to the emergency room with altered mental status. Workup shows multiple infarcts and complete occlusion of left internal carotid artery. The patient denies any chest pain or shortness of breath. Cardiac consult was called. PAST MEDICAL HISTORY: Significant for diabetes, hypertension, hyperlipidemia and previous CVA. PAST SURGICAL HISTORY: Left facial abscess. MEDICATIONS: Valium, oxycodone, amlodipine, valsartan, Zyprexa, metformin, glimepiride and atorvastatin. ALLERGIES: NO KNOWN DRUG ALLERGIES. PREVIOUS CARDIAC WORKUP: The patient had carotid artery ultrasound done on 12/10/2016, which shows a bilateral 29% proximal ICA stenosis and antegrade flow noted in vertebral artery. Lower extremity MRA done on 11/06/2016 showed occlusion of left SFA. MRA of the neck was done that shows complete occlusion of the left internal carotid artery, hypoplastic left vertebral artery and right carotid artery is normal. REVIEW OF SYSTEMS: As per HPI. PHYSICAL EXAMINATION: VITAL SIGNS: Temperature afebrile, heart rate is 72 and blood pressure 127/84. HEENT: PERRLA. Extraocular muscles intact. NECK: Supple. No carotid bruits. No thyromegaly. CHEST: Clear to auscultation. HEART: S1 and S2, regular. ABDOMEN: Soft. EXTREMITIES: Clubbing and cyanosis negative. LABORATORY DATA: Blood workup as follows: WBC 9.8, hemoglobin 15.8, hematocrit 46.0 and platelet count 160. Chemistry shows sodium 130, potassium 3.4, chloride 97, carbon dioxide 29, anion gap of 16, BUN 15 and creatinine 0.6. IMPRESSION: Multiple cerebrovascular accidents, cerebral infarct, peripheral arterial disease, left internal carotid artery occluded, altered mental status secondary to cerebrovascular accident, hypertension and hyperlipidemia. RECOMMENDATION: The patient is currently on heparin. Continue heparin. We will start low-dose beta-deandre. Continue atorvastatin and aspirin. Further recommendation in hospital course. We will get echocardiogram to assess LV function, lipid profile and TSH. If the patient needs emergent surgery, the patient can go with a moderate to high risk, but if elective surgery, the patient needs a cardiac workup. We will discuss with Dr. Lugo. Thank you Dr. Lugo for providing me the opportunity in taking care of the patient, Lawrence Vaughn. Leigh Woods MD
[2016-12-21] MEDS: Insulin Reg-HIGH-Coverage SC SCH ×4 (08:19→21:36)
[2016-12-21] MEDS: Potassium Chloride 20 mEq ER Tab PO SCH (09:52)
--- NOTE | 2016-12-21 11:12 | CP.PCM.PN ---
Subjective - Date & Time of Evaluation Date of Evaluation: 12/21/16 Time of Evaluation: 10:45 - Subjective Subjective: NAD, remains somewhat confused Objective - Vital Signs/Intake and Output Vital Signs (last 24 hours): Temp Pulse Resp BP Pulse Ox 98.5 F 63 20 147/84 95 12/21/16 06:00 12/21/16 09:52 12/21/16 06:00 12/21/16 09:52 12/21/16 06:00 Intake and Output: 12/21/16 12/21/16 06:59 18:59 Intake Total 450 Balance 450 - Medications Medications: Current Medications Albuterol/Ipratropium (Duoneb 3 Mg/0.5 Mg (3 Ml) Ud) 3 ml IH Q4H PRN PRN Reason: Shortness of Breath Aspirin (Ecotrin) 81 mg PO DAILY [facility] Last Admin: 12/21/16 09:51 Dose: 81 mg Atorvastatin Calcium (Lipitor) 80 mg PO DIN [facility] Last Admin: 12/20/16 17:33 Dose: 80 mg Heparin Sodium/Dextrose (Heparin 25,000 Units/250ml In D5w) 25,000 units in 250 mls @ 11.757 mls/hr IV .[id number] PRN; Protocol; 18 UNITS/KG/HR PRN Reason: ADJUST RATE PER PROTOCOL Last Admin: 12/20/16 22:33 Dose: 22 units/kg/hr, 14.37 mls/hr Insulin Human Regular (Humulin R High) 0 units SC ACHS [facility] PRN Reason: Protocol Last Admin: 12/21/16 08:19 Dose: 7 units Metoprolol Tartrate (Lopressor) 25 mg PO BID [facility] Last Admin: 12/21/16 09:52 Dose: 25 mg Potassium Chloride (K-Dur 20 Meq Er Tab) 20 meq PO BRK [facility] Last Admin: 12/21/16 09:52 Dose: 20 meq Thiamine HCl (Vitamin B1 Tab) 100 mg PO BID [facility] Last Admin: 12/21/16 09:52 Dose: 100 mg - Labs Labs: 12/21/16 06:15 12/21/16 06:15 PT 11.7 Seconds (9.9-11.8) 12/20/16 09:13 INR 1.08 (0.93-1.08) 12/20/16 09:13 APTT 61.5 Seconds (23.7-30.8) H 12/20/16 06:00 - Respiratory Exam Respiratory Exam: Clear to Ausculation Bilateral, NORMAL BREATHING PATTERN - Cardiovascular Exam Cardiovascular Exam: REGULAR RHYTHM - GI/Abdominal Exam GI & Abdominal Exam: Soft, Normal Bowel Sounds - Neurological Exam Neurological Exam: Altered - Skin Skin Exam: Dry, Warm Assessment and Plan (1) Altered mental status Status: Acute (2) COPD (chronic obstructive pulmonary disease) Status: Chronic (3) Type II diabetes mellitus Status: Chronic (4) Hypertension Status: Chronic (5) Hoarseness of voice Status: Chronic (6) CVA (cerebral vascular accident) Status: Acute (7) Carotid artery occlusion with cerebral infarction Status: Acute - Assessment and Plan (Free Text) Plan: for cardiac eval, ECHO, r/o cardiac mural thrombus as cause of carotid occlusion /embolism
--- NOTE | 2016-12-21 12:02 | PN ---
DATE: 12/21/2016 REASON FOR CONSULTATION AND FOLLOWUP: Cardiac evaluation, history of severe peripheral arterial disease, admitted with altered mental status, and high-grade critical stenosis of left internal carotid artery. SUBJECTIVE: The patient is much awake and alert. Denies any chest pain, shortness of breath. Denies any palpitation. OBJECTIVE: GENERAL: Lying flat in the bed, not in apparent distress. VITAL SIGNS: As follows; temperature afebrile, heart rate 68, and blood pressure 147/84. HEENT: PERRLA intact. NECK: Supple. No carotid bruits or thyromegaly. CHEST: Clear to auscultation. HEART: S1 and S2 regular. ABDOMEN: Soft. EXTREMITIES: Clubbing and cyanosis negative. LABORATORY DATA: Blood workup as follows; WBC 8, hemoglobin 16.8, hematocrit 48.3, and platelet count 150. Chemistry shows sodium 138, potassium 4.0, chloride 90, carbon dioxide of 31, anion gap of 13, BUN 14, and creatinine 0.6. IMPRESSION AND PLAN: A [id number] with past medical history significant for diabetes, hypertension, hyperlipidemia, history of cerebrovascular accident, and admitted with altered mental status. The patient had MRA of the neck 12/17/2016 that showed normal right carotid artery, normal left common carotid artery, but there is a complete occlusion of left internal carotid artery at its origin dated 12/17/2016. The patient had earlier ultrasound done, dated 12/10/2016 shows a 29% proximal internal carotid artery stenosis. History of peripheral arterial disease, history of superficial femoral artery occlusion also. Currently, the patient is on heparin, continue heparin, low-dose beta-deandre added, and continue atorvastatin and aspirin. Further recommendations to be in the hospital course. The patient had echocardiography done yesterday that revealed normal left ventricular function, ejection fraction within normal limits, mildly thickened, and no thrombus noted. Interim, continue aspirin, continue heparin, continue beta-deandre, and continue atorvastatin. If the patient needs emergent , the patient may go with moderate to high risk because of underlying comorbidity, but the patient needs elective carotid endarterectomy, consider stress. We will discuss with you. Thank you for providing me the opportunity in taking care of the patient, Roderick Prescott. Leigh Woosd MD [facility] # [id number]
[2016-12-21] MEDS: Heparin 25,000units in D5W 25,000 UNITS/250 ML BAG IV PRN (16:04)
[2016-12-22] MEDS: Insulin Reg-HIGH-Coverage SC SCH ×4 (08:29→21:34)
[2016-12-22] MEDS: Potassium Chloride 20 mEq ER Tab PO SCH (08:29)
[2016-12-22] MEDS: Heparin 25,000units in D5W 25,000 UNITS/250 ML BAG IV PRN (10:01)
--- NOTE | 2016-12-22 10:49 | CP.PCM.PN ---
Subjective - Date & Time of Evaluation Date of Evaluation: 12/22/16 Time of Evaluation: 10:40 - Subjective Subjective: NAD, remains somewhat confused Objective - Vital Signs/Intake and Output Vital Signs (last 24 hours): Temp Pulse Resp BP Pulse Ox 98.7 F 70 20 107/73 94 L 12/22/16 06:00 12/22/16 10:00 12/22/16 06:00 12/22/16 09:23 12/22/16 06:00 Intake and Output: 12/22/16 12/22/16 06:59 18:59 Intake Total 172 250 Output Total 400 Balance -228 250 - Medications Medications: Current Medications Albuterol/Ipratropium (Duoneb 3 Mg/0.5 Mg (3 Ml) Ud) 3 ml IH Q4H PRN PRN Reason: Shortness of Breath Aspirin (Ecotrin) 81 mg PO DAILY [facility] Last Admin: 12/22/16 09:23 Dose: 81 mg Atorvastatin Calcium (Lipitor) 80 mg PO DIN [facility] Last Admin: 12/21/16 17:20 Dose: 80 mg Heparin Sodium/Dextrose (Heparin 25,000 Units/250ml In D5w) 25,000 units in 250 mls @ 11.757 mls/hr IV .[id number] PRN; Protocol; 18 UNITS/KG/HR PRN Reason: ADJUST RATE PER PROTOCOL Last Admin: 12/22/16 10:01 Dose: 22 units/kg/hr, 14.37 mls/hr Insulin Human Regular (Humulin R High) 0 units SC ACHS [facility] PRN Reason: Protocol Last Admin: 12/22/16 08:29 Dose: 4 units Metoprolol Tartrate (Lopressor) 25 mg PO BID [facility] Last Admin: 12/22/16 09:23 Dose: 25 mg Potassium Chloride (K-Dur 20 Meq Er Tab) 20 meq PO BRK [facility] Last Admin: 12/22/16 08:29 Dose: 20 meq Thiamine HCl (Vitamin B1 Tab) 100 mg PO BID [facility] Last Admin: 12/22/16 09:23 Dose: 100 mg - Labs Labs: 12/21/16 06:15 12/21/16 06:15 PT 11.7 Seconds (9.9-11.8) 12/20/16 09:13 INR 1.08 (0.93-1.08) 12/20/16 09:13 APTT 64.1 Seconds (23.7-30.8) H 12/22/16 07:45 - Respiratory Exam Respiratory Exam: Clear to Ausculation Bilateral, NORMAL BREATHING PATTERN - Cardiovascular Exam Cardiovascular Exam: REGULAR RHYTHM - GI/Abdominal Exam GI & Abdominal Exam: Soft, Normal Bowel Sounds - Extremities Exam Extremities Exam: Normal Inspection - Neurological Exam Neurological Exam: Abnormal Gait, Altered, Awake - Skin Skin Exam: Dry, Warm Assessment and Plan (1) Altered mental status Status: Acute (2) COPD (chronic obstructive pulmonary disease) Status: Chronic (3) Type II diabetes mellitus Status: Chronic (4) Hypertension Status: Chronic (5) Hoarseness of voice Status: Chronic (6) CVA (cerebral vascular accident) Status: Acute (7) Carotid artery occlusion with cerebral infarction Status: Acute - Assessment and Plan (Free Text) Plan: continue IV heparin, cardiac w/u in progress
[2016-12-23] MEDS: Heparin 25,000units in D5W 25,000 UNITS/250 ML BAG IV PRN ×2 (03:16→20:32)
[2016-12-23] MEDS: Insulin Reg-HIGH-Coverage SC SCH ×4 (08:24→22:10)
[2016-12-23] MEDS: Potassium Chloride 20 mEq ER Tab PO SCH (08:26)
--- NOTE | 2016-12-23 14:43 | CP.PCM.PN ---
Subjective - Date & Time of Evaluation Date of Evaluation: 12/23/16 Time of Evaluation: 13:00 - Subjective Subjective: NAD, remains somewhat confused Objective - Vital Signs/Intake and Output Vital Signs (last 24 hours): Temp Pulse Resp BP Pulse Ox 98.2 F 77 22 137/95 H 94 L 12/23/16 00:01 12/23/16 10:00 12/23/16 00:01 12/23/16 09:26 12/22/16 06:00 Intake and Output: 12/23/16 12/23/16 06:59 18:59 Intake Total 610 Output Total 1075 Balance -465 - Medications Medications: Current Medications Albuterol/Ipratropium (Duoneb 3 Mg/0.5 Mg (3 Ml) Ud) 3 ml IH Q4H PRN PRN Reason: Shortness of Breath Aspirin (Ecotrin) 81 mg PO DAILY [facility] Last Admin: 12/23/16 09:26 Dose: 81 mg Atorvastatin Calcium (Lipitor) 80 mg PO DIN [facility] Last Admin: 12/22/16 18:09 Dose: 80 mg Heparin Sodium/Dextrose (Heparin 25,000 Units/250ml In D5w) 25,000 units in 250 mls @ 11.757 mls/hr IV .[id number] PRN; Protocol; 18 UNITS/KG/HR PRN Reason: ADJUST RATE PER PROTOCOL Last Admin: 12/23/16 03:16 Dose: 22 units/kg/hr, 14.37 mls/hr Insulin Human Regular (Humulin R High) 0 units SC ACHS [facility] PRN Reason: Protocol Last Admin: 12/23/16 12:23 Dose: 7 units Metoprolol Tartrate (Lopressor) 25 mg PO BID [facility] Last Admin: 12/23/16 09:26 Dose: 25 mg Potassium Chloride (K-Dur 20 Meq Er Tab) 20 meq PO BRK [facility] Last Admin: 12/23/16 08:26 Dose: 20 meq Thiamine HCl (Vitamin B1 Tab) 100 mg PO BID [facility] Last Admin: 12/23/16 09:26 Dose: 100 mg - Labs Labs: 12/21/16 06:15 12/21/16 06:15 PT 11.7 Seconds (9.9-11.8) 12/20/16 09:13 INR 1.08 (0.93-1.08) 12/20/16 09:13 APTT 67.8 Seconds (23.7-30.8) H 12/23/16 06:45 - Respiratory Exam Respiratory Exam: Clear to Ausculation Bilateral, NORMAL BREATHING PATTERN - Cardiovascular Exam Cardiovascular Exam: REGULAR RHYTHM - GI/Abdominal Exam GI & Abdominal Exam: Soft, Normal Bowel Sounds - Extremities Exam Extremities Exam: Full ROM - Neurological Exam Neurological Exam: Altered, Awake - Skin Skin Exam: Dry, Warm Assessment and Plan (1) Altered mental status Status: Acute (2) COPD (chronic obstructive pulmonary disease) Status: Chronic (3) Type II diabetes mellitus Status: Chronic (4) Hypertension Status: Chronic (5) Hoarseness of voice Status: Chronic (6) CVA (cerebral vascular accident) Status: Acute (7) Carotid artery occlusion with cerebral infarction Status: Acute - Assessment and Plan (Free Text) Plan: continue IV heparin, cardiac w/u, PT & SW for disposition
[2016-12-24] MEDS ORDERED: Aminophylline 25 mg/ml Inj ONE (10:21)
[2016-12-24] MEDS: Insulin Reg-HIGH-Coverage SC SCH ×4 (10:48→17:25)
--- NOTE | 2016-12-24 13:02 | CP.PCM.PN ---
Subjective - Date & Time of Evaluation Date of Evaluation: 12/24/16 Time of Evaluation: 12:15 - Subjective Subjective: c/o pain L hip, unable to weight-bear, otherwise NAD Objective - Vital Signs/Intake and Output Vital Signs (last 24 hours): Temp Pulse Resp BP Pulse Ox 97.9 F 72 20 129/37 L 100 12/24/16 06:00 12/24/16 10:00 12/24/16 06:00 12/24/16 06:00 12/24/16 06:00 Intake and Output: 12/24/16 12/24/16 06:59 18:59 Intake Total 250 Balance 250 - Medications Medications: Current Medications Albuterol/Ipratropium (Duoneb 3 Mg/0.5 Mg (3 Ml) Ud) 3 ml IH Q4H PRN PRN Reason: Shortness of Breath Aspirin (Ecotrin) 81 mg PO DAILY [facility] Last Admin: 12/23/16 09:26 Dose: 81 mg Atorvastatin Calcium (Lipitor) 80 mg PO DIN [facility] Last Admin: 12/23/16 17:19 Dose: 80 mg Heparin Sodium/Dextrose (Heparin 25,000 Units/250ml In D5w) 25,000 units in 250 mls @ 11.757 mls/hr IV .[id number] PRN; Protocol; 18 UNITS/KG/HR PRN Reason: ADJUST RATE PER PROTOCOL Last Admin: 12/23/16 20:32 Dose: 22 units/kg/hr, 14.37 mls/hr Insulin Human Regular (Humulin R High) 0 units SC ACHS [facility] PRN Reason: Protocol Last Admin: 12/24/16 12:13 Dose: Not Given Metoprolol Tartrate (Lopressor) 25 mg PO BID [facility] Last Admin: 12/24/16 10:49 Dose: Not Given Potassium Chloride (K-Dur 20 Meq Er Tab) 20 meq PO BRK [facility] Last Admin: 12/23/16 08:26 Dose: 20 meq Thiamine HCl (Vitamin B1 Tab) 100 mg PO BID [facility] Last Admin: 12/24/16 10:50 Dose: Not Given - Labs Labs: 12/21/16 06:15 12/21/16 06:15 PT 11.7 Seconds (9.9-11.8) 12/20/16 09:13 INR 1.08 (0.93-1.08) 12/20/16 09:13 APTT 71.0 Seconds (23.7-30.8) H* 12/24/16 08:20 - Respiratory Exam Respiratory Exam: Clear to Ausculation Bilateral, NORMAL BREATHING PATTERN - Cardiovascular Exam Cardiovascular Exam: REGULAR RHYTHM - GI/Abdominal Exam GI & Abdominal Exam: Soft, Normal Bowel Sounds - Neurological Exam Neurological Exam: Alert, Awake - Skin Skin Exam: Dry, Warm Assessment and Plan (1) Altered mental status Status: Acute (2) COPD (chronic obstructive pulmonary disease) Status: Chronic (3) Type II diabetes mellitus Status: Chronic (4) Hypertension Status: Chronic (5) Hoarseness of voice Status: Chronic (6) CVA (cerebral vascular accident) Status: Acute (7) Carotid artery occlusion with cerebral infarction Status: Acute - Assessment and Plan (Free Text) Plan: continue RT, orthopedic follow-up, for discharge planning
[2016-12-24] MEDS: Potassium Chloride 20 mEq ER Tab PO SCH (13:22)
[2016-12-24] MEDS: Heparin 25,000units in D5W 25,000 UNITS/250 ML BAG IV PRN (13:27)
--- NOTE | 2016-12-24 16:12 | PN ---
DATE: 12/24/2016 REASON FOR CONSULTATION AND FOLLOWUP: Cardiac evaluation, history of severe peripheral arterial disease, admitted with altered mental status, and high-grade carotid artery stenosis, preop evaluation for left internal carotid artery possible surgery. SUBJECTIVE: The patient denies any chest pain, shortness of breath, any palpitation. OBJECTIVE: GENERAL: The patient is lying flat on the bed, awaiting to go for a stress test. VITAL SIGNS: As follows; temperature afebrile, heart rate 61, and blood pressure 129/37. HEENT: PERRLA intact. NECK: Supple. No carotid bruits or thyromegaly. CHEST: Clear to auscultation. HEART: S1 and S2 regular. ABDOMEN: Soft and symmetric. Clubbing and cyanosis negative. LABORATORY DATA: Blood workup as follows; WBC 8.0, hemoglobin 16.8, hematocrit 48.3, and platelet count 150. Chemistry shows sodium 130, potassium 4.0, chloride 90, carbon dioxide of 31, anion gap of 13, BUN 14, and creatinine 0.6. IMPRESSION: Altered mental status, stroke, cerebrovascular accident, improved left carotid artery stenosis, peripheral arterial disease, multiple-vessel coronary artery disease. On preoperative evaluation, the patient needs a stress test. The patient is scheduled for a stress test. The patient had echocardiography on 12/20/2016 that showed concentric left ventricular hypertrophy, normal left ventricular function. Ejection fraction within normal limits. Moderately thickened aortic valve. RECOMMENDATION: The patient is on heparin as per vascular surgeon. Continue heparin. Consider to switch over to aspirin, Plavix. If stress test . Continue beta-deandre. We will put him on aspirin. We will follow with you. Thank you Dr. Lugo for providing me the opportunity in taking care of the patient. Leigh Woods MD
--- NOTE | 2016-12-24 16:28 | CARD ---
APPROVED REPORT Protocol: LEXISCAN Test Type: Lexiscan Sestamibi Stress Test Attending Physician: Dr. Leigh Caceres Referring Physician: Dr. Daniel Lugo Test Indications: Chest Pain Height:5 ft 10 in Weight:137lbs Medications: Aspirin, Lipitor, Heparin, Insulin, Lopressor, K-Dur, Vit. B1 Medical History: 61 y/o male with a history of diabetes, htn, hyperlipidemia, peripheral vascular disease, positive smoker Target HR: 159 bpm Resting ECG: RSR. Resting Heart Rate: 71 bpm Resting Blood Pressure: 126/78mmHg Submaximum (85%): 135 bpm PROCEDURE Pharmacologic stress testing was performed using 0.4mg per 5ml of regadenoson given intravenously over 7-10 seconds. POST EXERCISE Reason for Termination: Protocol completed Target HR: No Max HR: 73 bpm 68% of Maximum Predicted HR: 159 bpm Exercise duration: 00:31 min:sec, 0 Stage Exercise capacity: 1.0METs Max Blood Pressure: 126/78mmHg Blood Pressure response to exercise: normal resting BP - appropriate response Heart Rate response to exercise: appropriate Chest Pain: No, none Angina index: 0 Arrhythmia: Yes, PVCS. ST Change: No, none Deviation: 0 mm INTERPRETATION Stress EKG Conclusion: IV LEXISCAN NUCLEAR STRESS TEST NEGATIVE FOR CHEST PAIN AND NEGATIVE FOR ST-T CHANGES. NUCLEAR SCAN REPORT PENDING. Signed by Leigh Caceres Electronically Approved: 12/24/2016 12:37:30 EXAM: Myocardial Perfusion REST/STRESS Stress Test Type: Pharmacologic Imaging Protocol Rest Spect myocardial perfusion imaging was performed in supine position 45 minutes following the injection of 10.8 mCi of Tc-99 Myoview. At peak stress, the patient was injected intravenously with 30.9mCi of Tc-99 tetrofosmin after an infusion time of 0 minutes and 10 seconds. Gated Stress Spect was performed 60 minutes after intravenous Tc-99 Myoview injection. The images were gated to evaluate regional wall motion and calculate ventricular ejection fraction.Images were reconstructed using backfilter projection method in short horizontal and verticle long axis. Spect slices were generated. LV Perfusion The quality of the study is good. The left ventricle is normal in size. The right ventricle is unremarkable. The lung uptake is normal. The distribution of tracer reveals mildly to moderately decreased perfusion in the apical and inferior wall on the stress study. The remainder of the LV myocardium is unremarkable. The rest myocardial perfusion study shows no significant change. Wall Motion Wall motion study shows good contractility of the left ventricle except for paradoxical septal wall motion. LVEF = 53%. Conclusion 1. Probably normal SPECT myocardial perfusion study. 2. Fixed, apical inferior defect is most likely due to diaphrgmatic attenuation. 3. Normal overall LV function despite paradoxical septal wall motion.
[2016-12-25 01:31] VITALS: RESP 20; O2SAT 98
--- NOTE | 2016-12-25 09:18 | CP.PCM.PN ---
Subjective - Date & Time of Evaluation Date of Evaluation: 12/25/16 Time of Evaluation: 09:00 - Subjective Subjective: NAD, denies chest pain, denies SOB, seems less confused Objective - Vital Signs/Intake and Output Vital Signs (last 24 hours): Temp Pulse Resp BP Pulse Ox 97.8 F 67 20 154/83 H 98 12/25/16 00:01 12/25/16 06:00 12/25/16 00:01 12/25/16 00:01 12/25/16 00:01 - Medications Medications: Current Medications Albuterol/Ipratropium (Duoneb 3 Mg/0.5 Mg (3 Ml) Ud) 3 ml IH Q4H PRN PRN Reason: Shortness of Breath Aspirin (Ecotrin) 81 mg PO DAILY [facility] Last Admin: 12/24/16 13:22 Dose: 81 mg Atorvastatin Calcium (Lipitor) 80 mg PO DIN [facility] Last Admin: 12/24/16 17:28 Dose: 80 mg Clopidogrel Bisulfate (Plavix) 75 mg PO DAILY [facility] Famotidine (Pepcid) 40 mg PO HS [facility] Insulin Human Regular (Humulin R High) 0 units SC ACHS [facility] PRN Reason: Protocol Last Admin: 12/24/16 17:25 Dose: 12 units Metoprolol Tartrate (Lopressor) 25 mg PO BID [facility] Last Admin: 12/24/16 17:29 Dose: 25 mg Potassium Chloride (K-Dur 20 Meq Er Tab) 20 meq PO BRK [facility] Last Admin: 12/24/16 13:22 Dose: 20 meq Thiamine HCl (Vitamin B1 Tab) 100 mg PO BID [facility] Last Admin: 12/24/16 17:28 Dose: 100 mg - Labs Labs: 12/21/16 06:15 12/21/16 06:15 PT 11.7 Seconds (9.9-11.8) 12/20/16 09:13 INR 1.08 (0.93-1.08) 12/20/16 09:13 APTT 86.5 Seconds (23.7-30.8) H* 12/25/16 07:33 - Respiratory Exam Respiratory Exam: Clear to Ausculation Bilateral, NORMAL BREATHING PATTERN - Cardiovascular Exam Cardiovascular Exam: REGULAR RHYTHM - GI/Abdominal Exam GI & Abdominal Exam: Soft, Normal Bowel Sounds - Extremities Exam Extremities Exam: Normal Inspection - Neurological Exam Neurological Exam: Alert, Awake - Skin Skin Exam: Dry, Warm Assessment and Plan (1) Altered mental status Status: Acute (2) COPD (chronic obstructive pulmonary disease) Status: Chronic (3) Type II diabetes mellitus Status: Chronic (4) Hypertension Status: Chronic (5) Hoarseness of voice Status: Chronic (6) CVA (cerebral vascular accident) Status: Acute (7) Carotid artery occlusion with cerebral infarction Status: Acute - Assessment and Plan (Free Text) Plan: cardiac work-up shows no evidence of cardiac souce for carotid artery obstruction/embolus, will DC hepain IV and start ASA/Plavix, SW for disposition , poss subacute rehab
[2016-12-25] MEDS: Insulin Reg-HIGH-Coverage SC SCH ×3 (09:46→17:04)
[2016-12-25] MEDS: Potassium Chloride 20 mEq ER Tab PO SCH (09:46)
[2016-12-25 12:28] VITALS: TEMP 98.3
--- NOTE | 2016-12-25 15:00 | PN ---
DATE: 12/25/2016 REASON FOR CONSULTATION AND FOLLOWUP: Cardiac evaluation, history of PAD, admitted with mental status, high-grade carotid artery stenosis, and preop evaluation for possible left carotid artery endarterectomy. SUBJECTIVE: The patient denies any chest pain. Denies any shortness of breath. Denies any palpitation. OBJECTIVE: GENERAL: The patient is lying flat on the bed, awaiting for breakfast this morning, and not in apparent distress. VITAL SIGNS: Temperature afebrile, heart rate 70, and blood pressure 154/83. HEENT: PERRLA intact. NECK: Supple. No carotid bruits or thyromegaly. CHEST: Clear to auscultation. HEART: S1 and S2 regular. ABDOMEN: Soft. EXTREMITIES: Clubbing and cyanosis negative.. LABORATORY DATA: Blood workup as follows; WBC 8, hemoglobin 16.8, hematocrit 48.3, and platelet count 150. Chemistry shows sodium 130, potassium 4.0, chloride 98, carbon dioxide 31, anion gap of 13, BUN 14, and creatinine 0.6. TSH 1.3. INR 86.5. IMPRESSION: A 61-year-old male admitted with altered mental status, which is improved. Probably, the altered mental status secondary to acute cerebrovascular accident secondary to occlusion of left internal carotid artery. Right coronary artery was normal. Two months ago, the patient had duplex of 39% stenosis, which is not significant hemodynamically, thought to be the cardiac embolus, so the patient underwent echocardiography, no evidence of thrombus noted, preserved left ventricular function, and no wall motion abnormality noted. The patient underwent stress test also that shows no reversible ischemia so that ruled out the source of thrombus to the heart the preoperative clearance, the patient underwent stress test and is normal. From cardiac point of view, clear to go for endarterectomy if needed and since no evidence of acute thrombus noted suggest discontinue heparin and continue aspirin, Plavix, and also followup neurological recommendation. We will discontinue heparin. We will discuss with Dr. Lugo. Discussed with PA taking care of the patient Kelly Mena message to Dr. Lugo and we will discuss with Dr. Lugo. This acute altered mental status is secondary to acute stroke, which is improving. Echo did on shows within normal limits and no thrombus noted. Yesterday's in my note it was a typo cerebrovascular accident improved left carotid artery stenosis. Carotid artery did not improve, but actually mental status improved. We will also consider discontinue telemetry. Thank you Dr. Lugo for providing me the opportunity in taking care of the patient, Lawrence Vaughn. Leigh Woods MD
[2016-12-25 17:11] VITALS: BP 132/85; PULSE 70
== END 2016-12-25 19:13 | DRG 66 ==
LOC: ED 21:09 → ERH 23:53 → CCU 12-17 06:41 → OBSVTOIN 12-18 07:12 → 2RNO 12-19 21:42 → 5RSO 12-25 14:37
PROVIDERS: ADMIT Internal Medicine; ATTEND Internal Medicine
PROC: 3E033GC Introduction of Other Therapeutic Substance into Peripheral Vein, Percutaneous Approach (ICD-10-PCS; principal; 2016-12-17)
PROC: 0CJS8ZZ Inspection of Larynx, Via Natural or Artificial Opening Endoscopic (ICD-10-PCS; 2016-12-18)
DX: I63.232 Cerebral infarction due to unspecified occlusion or stenosis of left carotid arteries (principal); E11.51 Type 2 diabetes mellitus with diabetic peripheral angiopathy without gangrene; I11.9 Hypertensive heart disease without heart failure; R47.01 Aphasia; E11.65 Type 2 diabetes mellitus with hyperglycemia; F41.9 Anxiety disorder, unspecified; R49.0 Dysphonia; I25.10 Atherosclerotic heart disease of native coronary artery without angina pectoris; J44.9 Chronic obstructive pulmonary disease, unspecified; E78.00 Pure hypercholesterolemia, unspecified; Z72.0 Tobacco use; Z79.84 Long term (current) use of oral hypoglycemic drugs; Z78.1 Physical restraint status

== ENCOUNTER 2017-03-19 09:43 | Day surgery (SDC) | payer MEDICARE ==
[2017-03-19 10:23] VITALS: BMI 15.7
[2017-03-19 10:54] LABS: BASO # 0.02 K/mm3 (0.0-2.0); BASO % 0.2 % (0.0-3.0); EOS # 0.1 (0.0-0.7); EOS % 0.7 % (1.5-5.0); GRAN # 7.35 (1.4-6.5); GRAN % 80.9 % (50.0-68.0); HEMOGLOBIN 16.2 g/dL (14.0-18.0); LYMPH % 10.6 % (22.0-35.0); MEAN CELL VOLUME 90.9 fl (80.0-105.0); MEAN CORPUSCULAR HGB CONC 35.2 g/dl (31.0-37.0); MEAN PLATELET VOLUME 11.3 fl (7.0-11.0); MONO # 0.7 (0.1-0.6); MONO % 7.6 % (1.0-6.0); RBC 5.06 10^6/uL (3.5-6.1); RED CELL DISTRIBUTION WIDTH 12.9 % (11.5-14.5); WHITE BLOOD COUNT 9.1 10^3/ul (4.5-11.0)
[2017-03-19 11:08] LABS: INR 1.08 (0.93-1.08); PROTHROMBIN TIME 11.9 SECONDS (9.4-12.5)
[2017-03-19] MEDS ORDERED: Lidocaine 2% Inj (20ml) ONE (11:10)
[2017-03-19] MEDS ORDERED: Midazolam 2 MG/2 ML VIAL ONE ×3 (11:11→13:50)
[2017-03-19] MEDS ORDERED: HEPARIN SODIUM/NS 2,000 ML IV ONE (11:12)
[2017-03-19] MEDS ORDERED: Nitroglycerin 50mg in D5W 50 MG/250 ML BOTTLE IV ONE (11:12)
[2017-03-19] MEDS ORDERED: Iodixanol 320 MG/ML 100 ML BOTTLE IV ONE ×4 (11:12→14:53)
[2017-03-19] MEDS ORDERED: Iodixanol 320 MG/ML 200 ML BOTTLE IV ONE (11:12)
[2017-03-19 11:16] LABS: BLOOD UREA NITROGEN 19 mg/dL (7-21); CALCIUM 9.1 mg/dL (8.4-10.5); GFR AFRICAN-AMERICAN > 60; GFR NON-AFRICAN AMERICAN > 60
[2017-03-19] MEDS ORDERED: Flumazenil 0.1 mg/ml Inj (5ml) IVP ONE (13:58)
[2017-03-19] MEDS ORDERED: HEPARIN SODIUM/NS 1,000 ML IV ONE (14:20)
[2017-03-19] MEDS ORDERED: Heparin25000 units/250ml 1/2NS 25,000 UNITS/250 ML BAG IV ONE (15:02)
[2017-03-19] MEDS ORDERED: Albuterol-Ipratrop 3 mg / 0.5 (3 ml) UD IH PRN (15:20)
[2017-03-19] MEDS ORDERED: Heparin25000 units/250ml 1/2NS 25,000 UNITS/250 ML BAG IV PRN (15:22)
[2017-03-19] MEDS: Sodium Chloride 0.45% 1,000 ML IV SCH (17:21)
--- NOTE | 2017-03-19 20:12 | VASCULAR ---
PROCEDURE: 1. Abdominal aortogram and bilateral lower extremity runoff with left selective views. 2. Chronic left SFA recanalization with drug-eluting balloon angioplasty and Supera stent placement HISTORY: Severe peripheral vascular disease. Lifestyle limiting short distance left claudication. Attempt SFA recanalization PHYSICIAN(S): Oumar Navarro M.D. TECHNIQUE: The relative risks and indications of the procedure were explained to the patient on several previous occasions and consent obtained. The patient was hydrated prior to the procedure and the appropriate labs drawn. The patient was placed supine on the arteriogram table and the right groin prepped and draped in the usual sterile fashion. Conscious sedation and monitoring were provided throughout the procedure by a nurse. Via a right common femoral artery approach, a 5 [place]ar[place]uan sheath was placed in the right groin. Through the sheath and over a guidewire, a 5 [place]ar[place]uan flush catheter was placed in the abdominal aorta at the level of the renal arteries and a PA DSA abdominal aortogram performed. The catheter was pulled down to the aortic bifurcation and bilateral oblique DSA pelvic arteriograms performed. Overlapping bilateral lower extremity DSA arteriograms were obtained from the inguinal ligaments to the ankles. Initially a 6 [place]ar[place]uan sheath was used to take pressures across the plaque in the abdominal aorta at the level of the IOANA. No significant systolic gradient was demonstrated. A flush catheter was used to cross the bifurcation. The 6 [place]ar[place]uan 45 cm destination sheath was placed the left common femoral artery. The stump of the chronic left SFA occlusion was probed with 0.035 angled Glidewire. It was easily engaged. The mid to distal left SFA was difficult to cross in a sub intimal path was obtained. Re-entry was necessary with an out back catheter. 0.014 support wire was placed in the left peroneal artery. Heparin and nitroglycerin were given. The left popliteal artery above the knee and left SFA were initially dilated with long 5 mm balloons. Next the left popliteal artery and left SFA were dilated with 6 mm drug-eluting balloons. A suboptimal result was obtained with significant dissections in the mid to distal left SFA and popliteal arteries. The left popliteal artery and mid to distal left SFA were prepped with a 7 mm balloon. Next overlapping 6.5 mm Supera stents were placed throughout the left SFA and above knee popliteal arteries. A good angiographic result was obtained in the left SFA. There was slow flow in the left trifurcation and tibial arteries. There appear to be a subtle dissection in the left popliteal artery below the knee and trifurcation. The sheath was removed and the patient was admitted overnight. He remains on IV heparin. He will be re-evaluated in the morning and a follow-up duplex ultrasound of the left popliteal artery will be performed. FINDINGS: There are single renal arteries bilaterally which are widely patent and normal in appearance. The nephrograms are symmetric in appearance. E centric plaques are seen in the abdominal aorta below the renal arteries and at the level E IOANA. No systolic gradient is demonstrated in the abdominal aorta at the level of the IOANA. The aortic bifurcation is patent. Common external iliac arteries are calcified but patent. The internal iliac arteries are patent. No radiographically significant stenosis is seen. Right lower extremity: The right common femoral artery is patent with calcified posterior plaque.. The right profunda femoral artery is patent. The right superficial femoral artery is calcified with multiple mild stenoses. The right popliteal artery is patent and continuous. The right trifurcation demonstrates a significant stenosis at the right tibioperoneal bifurcation. There is 3 vessel runoff on the right below the study is patent and continuous.. Left lower extremity: Left common femoral artery is patent with mild posterior plaque. The left profunda femoral artery is hypertrophy. The left superficial femoral artery is occluded at its origin. There is reconstitution of the left popliteal artery at the patella. There is 3 vessel runoff on the left. Slow flow is demonstrated distally. IMPRESSION: 1.Successful left SFA recanalization with drug-eluting balloon angioplasty and stent placement as described above. 2. Slow flow in the left popliteal artery below the knee and trifurcation post intervention. There appears to be a subtle dissection. The patient will remain on anticoagulation overnight and an ultrasound left popliteal artery performed in the a.m.
[2017-03-19] MEDS: Oxycodone/Acetaminophen 5/325 mg Tab PO PRN (23:34)
[2017-03-20 03:32] LABS: HEMOGLOBIN 14.8 g/dL (14.0-18.0); MEAN CELL VOLUME 91.7 fl (80.0-105.0); MEAN CORPUSCULAR HEMOGLOBIN 31.4 pg (25.0-35.0); MEAN CORPUSCULAR HGB CONC 34.2 g/dl (31.0-37.0); MEAN PLATELET VOLUME 10.9 fl (7.0-11.0); RBC 4.72 10^6/uL (3.5-6.1); RED CELL DISTRIBUTION WIDTH 12.6 % (11.5-14.5); WHITE BLOOD COUNT 10.3 10^3/ul (4.5-11.0)
[2017-03-20 03:58] LABS: BLOOD UREA NITROGEN 12 mg/dL (7-21); GFR AFRICAN-AMERICAN > 60; GFR NON-AFRICAN AMERICAN > 60
[2017-03-20] MEDS: Sodium Chloride 0.45% 1,000 ML IV SCH (04:00)
[2017-03-20 06:33] VITALS: RESP 20; O2SAT 94
[2017-03-20] MEDS ORDERED: Metoprolol Succinate 50 mg XL Tab PO SCH (10:00)
[2017-03-20] MEDS: Oxycodone/Acetaminophen 5/325 mg Tab PO PRN (10:43)
--- NOTE | 2017-03-20 11:43 | US ---
PROCEDURE: Limited duplex arterial ultrasound left popliteal artery and trifurcation HISTORY: Recent left SFA recanalization. Evaluate for popliteal artery dissection or thrombosis. PHYSICIAN(S): Oumar Navarro MD. TECHNIQUE: FINDINGS: The stent in the distal left SFA and above knee popliteal artery is patent. Biphasic waveform is present. The left below knee popliteal artery is patent without evidence of thrombus or dissection. The proximal tibial arteries are patent. The arteries are not well visualized IMPRESSION: Patent left popliteal artery. No evidence of thrombus or dissection The tibial arteries are not well seen
--- NOTE | 2017-03-20 11:48 | US ---
PROCEDURE: Single level Ankle-brachial indices HISTORY: Severe peripheral vascular disease. Recent left SFA angioplasty and stent placement. Evaluate for thrombosis PHYSICIAN(S): Oumar Navarro MD. TECHNIQUE: FINDINGS: The resting ABIs are moderately abnormal: Right, 0.64 and left, 0.56 Comparing with the September, study, the left TRU is not significantly changed. The distal waveforms at the left ankle and metatarsal level are slightly improved. IMPRESSION: Moderately abnormal ABIs at rest. The left resting TRU is not significantly improved. However, the distal left PVR waveforms are improved from the September study. This should be followed closely.
[2017-03-20 17:41] VITALS: BP 137/81; PULSE 72; TEMP 97.9
== END 2017-03-20 20:18 | disposition home or self-care (01) ==
LOC: SDSVAS 09:43 → 2RSO 16:32 → SDSVAS 03-20 20:18
PROVIDERS: ATTEND Radiology Vascular & Interventional Radiology
DX: I70.213 Atherosclerosis of native arteries of extremities with intermittent claudication, bilateral legs (principal); I10 Essential (primary) hypertension; J43.9 Emphysema, unspecified; E11.9 Type 2 diabetes mellitus without complications; Z86.73 Personal history of transient ischemic attack (TIA), and cerebral infarction without residual deficits; F17.290 Nicotine dependence, other tobacco product, uncomplicated
CPT/HCPCS: 36415 ×2; 37226; 75625; 75716; 80048 ×2; 82948; 85025; 85027; 85610; 85730 ×2; 93922; 93923; 99152; 99153; C1725 ×5; C1760; C1769 ×7; C1876; C1885; C1887 ×2; C1894; J0690; J1644 ×3; J2250; J2405; J3010; J7030 ×2; Q9967

== ENCOUNTER 2017-04-22 12:47 | Emergency (ER) | payer MEDICARE ==
[2017-04-22 13:24] VITALS: TEMP 98; BMI 22.1
--- NOTE | 2017-04-22 13:45 | ED PDOC ---
Arrival/HPI - General Chief Complaint: Lower Extremity Problem/Injury Time Seen by Provider: 04/22/17 13:38 Historian: Patient - History of Present Illness Narrative History of Present Illness (Text): 04/22/17 13:40 Lawrence Vaughn is a 62 year old male, whose past medical history includes COPD, DVT, and diabetes, who presents to the emergency department complaining of left foot pain that has become worse in the past five days. Patient reports she was diagnosed with a DVT and on 03/19/17 had a procedure done by Dr. Navarro to remove the clot. He states he was supposed to follow up but did not and five days ago fell out of bed causing his left foot pain to all toes. Patient notes taking Aspirin. Patient did not hit their head or lose consciousness and denies other complaints. Time/Duration: < week Symptom Onset: Gradual Symptom Course: Unchanged Past Medical History - Provider Review Nursing Documentation Reviewed: Yes - Infectious Disease Hx of Infectious Diseases: None - Tetanus Immunization Tetanus Immunization: Unknown - Reproductive Currently Lactating: No - Cardiac Hx Cardiac Disorders: No - Pulmonary Hx Chronic Obstructive Pulmonary Disease (COPD): Yes - Neurological Hx Neurological Disorder: Yes - HEENT Hx HEENT Disorder: Yes ([place]) Hx Deafness: Yes (LEFT EAR) - Renal Hx Renal Disorder: No - Endocrine/Metabolic Hx Diabetes Mellitus Type 2: Yes - Hematological/Oncological Hx Blood Disorders: No - Integumentary Hx Dermatological Disorder: No - Musculoskeletal/Rheumatological Hx Musculoskeletal Disorders: No - Gastrointestinal Hx Gastrointestinal Disorders: No - Genitourinary/Gynecological Hx Genitourinary Disorders: No - Psychiatric Hx Psychophysiologic Disorder: No Hx Substance Use: No - Past Surgical History Past Surgical History: No Previous - Surgical History Hx Appendectomy: Yes Other/Comment: plate on mouth - Anesthesia Hx Anesthesia Reactions: No Hx Malignant Hyperthermia: No - Suicidal Assessment Feels Threatened In Home Enviroment: No Family/Social History - Physician Review Nursing Documentation Reviewed: Yes Family/Social History: Unknown Family HX Smoking Status: Current Some Days Smoker Hx Alcohol Use: No Hx Substance Use: No Allergies/Home Meds Allergies/Adverse Reactions: Allergies No Known Allergies Allergy (Verified 04/22/17 13:23) Home Medications: Home Meds Medication Instructions Recorded Confirmed Unobtainable 04/22/17 04/22/17 Review of Systems - Physician Review All systems were reviewed & negative as marked: Yes - Review of Systems Constitutional: absent: Fevers Respiratory: absent: SOB Cardiovascular: absent: Chest Pain Musculoskeletal: Other (left foot pain) Physical Exam - Physical Exam Narrative Physical Exam (Text): 04/22/17 15:53 clarification--no temperature differences of both lower extremities. Peripheral pulses diminished. Feet are both pink, no open wounds; capillary refill less than 2 seconds. No sensory deficits. Vital Signs Reviewed: Yes Vital Signs Temp Pulse Resp BP Pulse Ox 04/22/17 15:15 86 18 117/75 95 04/22/17 13:23 98.0 F 93 H 18 115/85 95 04/22/17 13:20 98.2 F 98 H 18 120/81 97 Temperature: Afebrile Blood Pressure: Normal Pulse: Tachycardic Respiratory Rate: Normal Appearance: Positive for: Well-Appearing, Non-Toxic, Comfortable Pain Distress: None Mental Status: Positive for: Alert and Oriented X 3 - Systems Exam Head: Present: Atraumatic, Normocephalic Pupils: Present: PERRL Extroacular Muscles: Present: EOMI Conjunctiva: Present: Normal Mouth: Present: Moist Mucous Membranes Neck: Present: Normal Range of Motion Respiratory/Chest: Present: Clear to Auscultation, Good Air Exchange. No: Respiratory Distress, Accessory Muscle Use, Wheezes, Retracting, Rhonchi Cardiovascular: Present: Regular Rate and Rhythm, Normal S1, S2. No: Murmurs Lower Extremity: Present: Normal Inspection, Normal ROM, Capillary Refill < 2 s. No: Edema, NORMAL PULSES (decreased pulses on bilateral feet.), Cyanosis, Tenderness, Swelling, Deformity, Temperature Abnormalties (warm to touch) Neurological: Present: GCS=15, CN II-XII Intact, Speech Normal Skin: Present: Warm, Dry, Normal Color. No: Rashes Psychiatric: Present: Alert, Oriented x 3, Normal Insight, Normal Concentration Medical Decision Making ED Course and Treatment: 04/22/17 Impression: 62 year old male with decreased pulses on bilateral feet. Plan: -- Labs -- Left foot x-ray -- Reassess and disposition Progress Notes: - Lab Interpretations I have reviewed the lab results: Yes - RAD Interpretation Radiology Orders: 04/22/17 13:58 FOOT LEFT 3 VIEWS ROUTINE [RAD] Stat [employer] Loss Prevention Specialist: Radiologist - Scribe Statement The provider has reviewed the documentation as recorded by the Benja Dumont Provider Scribe Attestation: All medical record entries made by the Scribe were at my direction and personally dictated by me. I have reviewed the chart and agree that the record accurately reflects my personal performance of the history, physical exam, medical decision making, and the department course for this patient. I have also personally directed, reviewed, and agree with the discharge instructions and disposition. Disposition/Present on Arrival - Present on Arrival Any Indicators Present on Arrival: No History of DVT/PE: Yes History of Uncontrolled Diabetes: Yes Urinary Catheter: No History of Decub. Ulcer: No History Surgical Site Infection Following: None - Disposition Have Diagnosis and Disposition been Completed?: Yes Diagnosis: Peripheral vascular disease, Contusion Disposition: HOME/ ROUTINE Disposition Time: 16:00 Condition: STABLE Additional Instructions: follow up with Dr Navarro this week. Forms: [employer] (Armenian)
--- NOTE | 2017-04-22 15:41 | RAD ---
PROCEDURE: Left Foot Radiographs. HISTORY: fall COMPARISON: None. FINDINGS: BONES: Normal. No fracture. JOINTS: Normal. SOFT TISSUES: Normal. OTHER FINDINGS: None. IMPRESSION: Normal left foot radiographs.
[2017-04-22 16:48] VITALS: BP 119/78; PULSE 82; RESP 17; O2SAT 99
== END 2017-04-22 16:00 | disposition home or self-care (01) ==
LOC: ED 12:47
DX: I73.9 Peripheral vascular disease, unspecified (principal); T14.8XXA Other injury of unspecified body region, initial encounter; W06.XXXA Fall from bed, initial encounter; E11.9 Type 2 diabetes mellitus without complications; J44.9 Chronic obstructive pulmonary disease, unspecified

== ENCOUNTER 2017-04-24 10:19 | Inpatient (IN) | payer MEDICARE, MEDICAID, OTHER ==
[2017-04-24] MEDS ORDERED: Sodium Chloride 0.9% 1,000 ML IV SCH (11:00)
[2017-04-24 12:00] LABS: BASO # 0.01 K/mm3 (0.0-2.0); BASO % 0.1 % (0.0-3.0); EOS # 0.2 (0.0-0.7); EOS % 1.7 % (1.5-5.0); GRAN # 6.49 (1.4-6.5); GRAN % 69.5 % (50.0-68.0); HEMOGLOBIN 14.7 g/dL (14.0-18.0); LYMPH # 2.2 (1.2-3.4); LYMPH % 23.2 % (22.0-35.0); MEAN CELL VOLUME 91.3 fl (80.0-105.0); MEAN CORPUSCULAR HEMOGLOBIN 30.6 pg (25.0-35.0); MEAN CORPUSCULAR HGB CONC 33.6 g/dl (31.0-37.0); MEAN PLATELET VOLUME 10.9 fl (7.0-11.0); MONO # 0.5 (0.1-0.6); MONO % 5.5 % (1.0-6.0); RBC 4.8 10^6/uL (3.5-6.1); RED CELL DISTRIBUTION WIDTH 12.8 % (11.5-14.5); WHITE BLOOD COUNT 9.3 10^3/ul (4.5-11.0)
[2017-04-24 12:11] LABS: BLOOD UREA NITROGEN 18 mg/dL (7-21); CALCIUM 9.4 mg/dL (8.4-10.5); GFR AFRICAN-AMERICAN > 60; GFR NON-AFRICAN AMERICAN > 60; MAGNESIUM 1.9 mg/dL (1.7-2.2)
--- NOTE | 2017-04-24 12:13 | ED PDOC ---
Arrival/HPI - General Chief Complaint: Lower Extremity Problem/Injury Time Seen by Provider: 04/24/17 10:54 Historian: Patient - History of Present Illness Narrative History of Present Illness (Text): 04/24/17 10:55 A 62 year old male, whose past medical history includes COPD, DVT, and diabetes , presents to the emergency department complaining of left leg pain since 2017. Patient reports being seen by Dr. Oumar Navarro, who sent him here to the ER for further evaluation. Patient. has no other complaints. PMD: Dr. Daniel Lugo Past Medical History - Provider Review Nursing Documentation Reviewed: Yes - Infectious Disease Hx of Infectious Diseases: None - Tetanus Immunization Tetanus Immunization: Unknown - Reproductive Currently Lactating: No - Cardiac Hx Cardiac Disorders: No - Pulmonary Hx Chronic Obstructive Pulmonary Disease (COPD): Yes - Neurological Hx Neurological Disorder: Yes - HEENT Hx HEENT Disorder: Yes ([place]) Hx Deafness: Yes (LEFT EAR) - Renal Hx Renal Disorder: No - Endocrine/Metabolic Hx Diabetes Mellitus Type 2: Yes - Hematological/Oncological Hx Blood Disorders: No - Integumentary Hx Dermatological Disorder: No - Musculoskeletal/Rheumatological Hx Musculoskeletal Disorders: No - Gastrointestinal Hx Gastrointestinal Disorders: No - Genitourinary/Gynecological Hx Genitourinary Disorders: No - Psychiatric Hx Psychophysiologic Disorder: No Hx Substance Use: No - Past Surgical History Past Surgical History: No Previous - Surgical History Hx Appendectomy: Yes Other/Comment: plate on mouth - Anesthesia Hx Anesthesia Reactions: No Hx Malignant Hyperthermia: No - Suicidal Assessment Feels Threatened In Home Enviroment: No Family/Social History - Physician Review Nursing Documentation Reviewed: Yes Family/Social History: No Known Family HX Smoking Status: Current Some Days Smoker Hx Alcohol Use: No Hx Substance Use: No Allergies/Home Meds Allergies/Adverse Reactions: Allergies No Known Allergies Allergy (Verified 04/22/17 13:23) Home Medications: Home Meds Medication Instructions Recorded Confirmed Unobtainable 04/22/17 04/22/17 Review of Systems - Physician Review All systems were reviewed & negative as marked: Yes - Review of Systems Constitutional: absent: Fevers, Night Sweats Gastrointestinal: absent: Abdominal Pain, Diarrhea, Nausea, Vomiting Musculoskeletal: Other (lower leg pain) Physical Exam Vital Signs Reviewed: Yes Vital Signs Temp Pulse Resp BP Pulse Ox 04/24/17 19:11 68 18 144/86 97 04/24/17 17:06 66 18 138/67 97 04/24/17 15:22 69 18 141/69 97 04/24/17 14:19 71 18 145/71 97 04/24/17 12:03 75 18 148/79 97 04/24/17 10:45 98.1 F 80 18 152/86 H 96 Temperature: Afebrile Blood Pressure: Hypertensive Pulse: Regular Respiratory Rate: Normal Appearance: Positive for: Well-Appearing Pain Distress: None Mental Status: Positive for: Alert and Oriented X 3 - Systems Exam Head: Present: Atraumatic, Normocephalic Pupils: Present: PERRL Extroacular Muscles: Present: EOMI Conjunctiva: Present: Normal Mouth: Present: Moist Mucous Membranes Neck: Present: Normal Range of Motion Respiratory/Chest: Present: Clear to Auscultation, Good Air Exchange. No: Respiratory Distress, Accessory Muscle Use Cardiovascular: Present: Regular Rate and Rhythm, Normal S1, S2. No: Murmurs Abdomen: Present: Normal Bowel Sounds. No: Tenderness, Distention, Peritoneal Signs Back: Present: Normal Inspection Upper Extremity: Present: Normal Inspection, Neurovascularly Intact. No: Cyanosis, Edema Lower Extremity: Present: Normal Inspection, Other (full motor strength; foot is cold). No: Edema, NORMAL PULSES (decreased pedial pulses to left foot) Neurological: Present: GCS=15, CN II-XII Intact, Speech Normal, Normal Sensory Function Skin: Present: Warm, Dry, Normal Color. No: Rashes Psychiatric: Present: Alert, Oriented x 3, Normal Insight, Normal Concentration Medical Decision Making ED Course and Treatment: 04/24/17 10:57 Impression: 62 year old male with left leg pain. Physical exam shows left foot pedial pulses decreased; foot is cold; sensation intact; full motor strength intact. Differential Diagnosis included but are not limited to: Left Leg Pain Arterial Occlusion Plan: -- Ankle/Brachial Ultrasound -- Labs -- IV Fluids -- Reassess and disposition Prior Visits: Notes and results from previous visits were reviewed. Patient was last seen in the emergency department on 04/22/2017 for left foot pain. Patient was discharged home. Progress Notes: 04/24/17 14:[address] Daniel Lugo, whom recommends admitting patient under Dr. Cook's service, to which Dr. Cook agrees. Case was discussed with Dr. Navarro prior to arrival who recommended Heparin drip , TRU studies and NS IVF. He will do a procedure in the morning. - Lab Interpretations Lab Results: 04/24/17 11:48 04/24/17 11:48 Lab Results 04/24/17 11:48: Blood Type O POSITIVE, Antibody Screen Negative, BBK History Checked No verified bt 04/24/17 11:48: Sodium 142, Potassium 3.4 L, Chloride 102, Carbon Dioxide 29, Anion Gap 15, BUN 18, Creatinine 0.6 L, Est GFR ( Amer) > 60, Est GFR ( Non-Af Amer) > 60, Random Glucose 257 H, Calcium 9.4, Magnesium 1.9 04/24/17 11:48: PT 12.6 H, INR 1.09 H, APTT 27.9 04/24/17 11:48: WBC 9.3, RBC 4.80, Hgb 14.7, Hct 43.8, MCV 91.3, MCH 30.6, MCHC 33.6, RDW 12.8, Plt Count 170, MPV 10.9, Gran % 69.5 H, Lymph % (Auto) 23.2, [place] % (Auto) 5.5, Eos % (Auto) 1.7, Baso % (Auto) 0.1, Gran # 6.49, Lymph # ( Auto) 2.2, [place] # (Auto) 0.5, Eos # (Auto) 0.2, Baso # (Auto) 0.01 04/24/17 11:40: Blood Type Confirm O POSITIVE I have reviewed the lab results: Yes - RAD Interpretation Radiology Orders: 04/24/17 10:57 LOWER EXT ART NON-INV COMPL [US] Stat - Medication Orders Current Medication Orders: Famotidine (Pepcid) 40 mg PO HS TIFFANIE Sodium Chloride (Sodium Chloride 0.9%) 1,000 mls @ 70 mls/hr IV .[id number] TIFFANIE Last Admin: 04/24/17 12:44 Dose: 70 mls/hr eMAR Start Stop Document 04/24/17 12:44 GMD (Rec: 04/24/17 12:44 GMD [facility] [id number]) Intravenous Solution Start Date 04/24/17 Start Time 12:44 Heparin Sodium/Sodium Chloride (Heparin 53748 Units/250ml 1/2 Normal Saline) 25 ,000 units in 250 mls @ 11.218 mls/hr IV .[id number] PRN; Protocol; 18 UNITS/KG/HR PRN Reason: ADJUST RATE PER PROTOCOL Last Admin: 04/24/17 13:19 Dose: 11.218 mls/hr eMAR Start Stop Document 04/24/17 13:19 GMD (Rec: 04/24/17 13:19 GMD [facility] [id number]) Intravenous Solution Start Date 04/24/17 Start Time 13:19 Discontinued Medications Heparin Sodium (Porcine) (Heparin) 5,000 units 80 units/kg (5000 units) IV ONCE ONE PRN Reason: Protocol Stop: 04/24/17 12:29 Last Admin: 04/24/17 13:08 Dose: 5,000 units eMAR Start Stop Document 04/24/17 13:08 GMD (Rec: 04/24/17 13:08 GMD [facility] [id number]) Intravenous Solution Start Date 04/24/17 Start Time 13:08 Potassium Chloride (K-Dur 20 Meq Er Tab) 40 meq PO STAT STA Stop: 04/24/17 13:03 Last Admin: 04/24/17 13:41 Dose: 40 meq - Scribe Statement The provider has reviewed the documentation as recorded by the Benja Bella Provider Scribe Attestation: All medical record entries made by the Scribe were at my direction and personally dictated by me. I have reviewed the chart and agree that the record accurately reflects my personal performance of the history, physical exam, medical decision making, and the department course for this patient. I have also personally directed, reviewed, and agree with the discharge instructions and disposition. Disposition/Present on Arrival - Present on Arrival Any Indicators Present on Arrival: Yes History of DVT/PE: Yes History of Uncontrolled Diabetes: Yes Urinary Catheter: No History of Decub. Ulcer: No History Surgical Site Infection Following: None - Disposition Have Diagnosis and Disposition been Completed?: Yes Diagnosis: Peripheral vascular disease, Arterial occlusion Disposition: HOSPITALIZED Disposition Time: 14:34 Patient Plan: Admission Condition: FAIR
[2017-04-24 12:16] LABS: INR 1.09 (0.93-1.08); PARTIAL THROMBOPLASTIN TIME 27.9 Seconds (25.1-36.5); PROTHROMBIN TIME 12.6 SECONDS (9.4-12.5)
[2017-04-24] MEDS ORDERED: Potassium Chloride 20 mEq ER Tab PO STA (13:02)
[2017-04-24] MEDS: Heparin25000 units/250ml 1/2NS 25,000 UNITS/250 ML BAG IV PRN (13:19)
--- NOTE | 2017-04-24 19:00 | US ---
PROCEDURE: Lower extremity TRU exam HISTORY: Peripheral vascular disease. Recent left SFA recanalization with angioplasty and stent placement. Subacute thrombosis with left foot rest pain. PHYSICIAN(S): Oumar Navarro MD. FINDINGS: The right resting TRU is mildly abnormal, 0.82. The left resting ABIs severely abnormal, 0.42 The brachial systolic pressures are symmetric. The high thigh PVR waveforms are normal and symmetric. Upper there is a significant 90 mm gradient between the arm and left high thigh pressure. This could represent left iliac and/ or [employer]OR occlusive disease. There is a significant gradient across right knee. The right calf PVR waveform does not augment. This could represent distal right SFA, popliteal, and/ or trifurcation disease. The left calf PVR waveform is severely blunted. This is consistent with occlusion of the recent left SFA intervention. The left ankle and metatarsal waveforms are essentially flat. The right ankle and metatarsal waveforms are moderately blunted IMPRESSION: 1. Severe left TRU at rest. 2. Occluded left SFA intervention. 3. Left iliac and/ or E[employer]PECTOR occlusive disease 4. Distal right SFA, popliteal, and/ or trifurcation disease
[2017-04-24 21:46] LABS: PROTHROMBIN TIME 12.6 SECONDS (9.4-12.5)
[2017-04-24 21:47] LABS: INR 1.1 (0.93-1.08); PARTIAL THROMBOPLASTIN TIME 105.1 Seconds (25.1-36.5)
[2017-04-25 04:50] VITALS: BMI 19.6
[2017-04-25 06:09] LABS: MEAN CELL VOLUME 90.5 fl (80.0-105.0); MEAN CORPUSCULAR HEMOGLOBIN 30.8 pg (25.0-35.0); MEAN CORPUSCULAR HGB CONC 34.1 g/dl (31.0-37.0); MEAN PLATELET VOLUME 10.6 fl (7.0-11.0); RBC 4.54 10^6/uL (3.5-6.1); RED CELL DISTRIBUTION WIDTH 12.8 % (11.5-14.5); WHITE BLOOD COUNT 6.9 10^3/ul (4.5-11.0)
[2017-04-25 06:25] LABS: BLOOD UREA NITROGEN 15 mg/dL (7-21); CALCIUM 8.9 mg/dL (8.4-10.5); GFR AFRICAN-AMERICAN > 60; GFR NON-AFRICAN AMERICAN > 60; HDL CHOLESTEROL 37 mg/dL (29-60)
[2017-04-25 06:26] LABS: IRON 102 ug/dL (45-180)
[2017-04-25 06:35] LABS: % IRON SATURATION 44 % (20-55); TOTAL IRON BINDING CAPACITY 233 ug/dL (261-462)
[2017-04-25 06:36] LABS: LDL CHOLESTEROL 82 mg/dL (0-129)
--- NOTE | 2017-04-25 08:59 | HP ---
CHIEF COMPLAINT: Pain in the left lower leg. HISTORY OF PRESENT ILLNESS: The patient is a 62-year-old male with past medical history of COPD, DVT, diabetes mellitus, came to the emergency department complaining of left leg pain since 03/22/2017. Patient reportedly is being seen by Dr. Oumar Navarro, who sent him to the emergency room for further evaluation. Patient has no fever, no chills. No nausea, vomiting, diarrhea. No hematuria or hematochezia. PAST MEDICAL HISTORY: COPD, deafness of the left ear, diabetes mellitus, appendectomy. FAMILY HISTORY: Noncontributory. HABITS: Currently some-day smoker. Alcohol, no. Substance abuse, no. ALLERGIES: PATIENT IS NOT ALLERGIC TO ANY MEDICATIONS. HOME MEDICATIONS: Patient does not remember. REVIEW OF SYSTEMS: The patient was seen and examined on the bedside. Looking comfortable in the ER. Complaining of pain in the left leg and was hungry. No fever. No night sweats. No abdominal pain, diarrhea, nausea, or vomiting. He has pain in the leg. PHYSICAL EXAMINATION VITAL SIGNS: Temperature 98.1, pulse 80, respiratory rate 18, blood pressure 152/56, pulse oximetry of 96. HEENT: Head normocephalic and atraumatic. Eyes; PERRLA. Extraocular muscles intact. Conjunctivae clear. Nose patent. Mucous membrane moist. NECK: Supple. No carotid bruits, JVD, or thyromegaly. CHEST: Bilaterally symmetrical. HEART: S1 and S2 positive. LUNGS: Clear to auscultation. ABDOMEN: Soft, positive organomegaly. EXTREMITIES: No edema, no cyanosis. NEUROLOGIC: The patient is awake and alert. Moving all four extremities. No focal deficits. LABORATORY DATA: White blood cells 9.6, hemoglobin 14.7, hematocrit 43.8, platelets 170. Sodium 142, potassium 3.4, BUN 18, creatinine 0.5, glucose 257. ASSESSMENT AND PLAN: Patient is a 62-year-old male with hypokalemia - replaced, hyperglycemia, looks like uncontrolled diabetes mellitus, came with leg pain, severe peripheral vascular disease, arterial occlusion. Extremity ultrasound is done. According to that, severe left ankle-brachial index at rest, occluded left superficial femoral artery intervention, left iliac and/or common femoral artery occlusive disease, with right superior femoral artery, popliteal, and other trifurcation disease. Patient has a history of chronic obstructive pulmonary disease, hypertension, history of deep venous thrombosis. We admitted the patient, started on heparin drip, but consulted with Dr. Oumar Navarro. We will follow. Chika Cook MD
[2017-04-25 13:22] LABS: FOLATE 19.7 ng/mL
[2017-04-25] MEDS: Heparin25000 units/250ml 1/2NS 25,000 UNITS/250 ML BAG IV PRN (13:40)
[2017-04-25] MEDS ORDERED: Iodixanol 320 MG/ML 100 ML BOTTLE IV ONE (15:58)
[2017-04-25] MEDS ORDERED: HEPARIN SODIUM/NS 2,000 ML IV ONE (15:58)
[2017-04-25] MEDS ORDERED: Midazolam 2 MG/2 ML VIAL ONE ×2 (15:58→16:51)
[2017-04-25] MEDS ORDERED: Iodixanol 320 MG/ML 200 ML BOTTLE IV ONE (15:58)
[2017-04-25] MEDS ORDERED: Nitroglycerin 50mg in D5W 50 MG/250 ML BOTTLE IV ONE (15:58)
[2017-04-25] MEDS ORDERED: Lidocaine 2% Inj (20ml) ONE (15:58)
[2017-04-25] MEDS ORDERED: Heparin25000 units/250ml 1/2NS 25,000 UNITS/250 ML BAG IV ONE (17:55)
[2017-04-25] MEDS ORDERED: HYDROmorphone 0.5 mg/0.5 ml ISec IVP PRN (18:20)
--- NOTE | 2017-04-25 20:22 | VASCULAR ---
PROCEDURE: 1. Abdominal aortogram and selective left lower extremity arteriogram 2. Ekos catheter - directed thrombolysis of the left SFA and popliteal artery HISTORY: Severe peripheral vascular disease. Recent recanalization of a chronic left SFA occlusion. Subacute thrombosis with severe rest pain. PHYSICIAN(S): Oumar Navarro M.D. TECHNIQUE: The relative risks and indications of the procedure were explained to the patient and consent obtained. The patient was hydrated prior to the procedure and the appropriate labs drawn. The patient was placed supine on the arteriogram table and the right groin prepped and draped in the usual sterile fashion. Conscious sedation and monitoring were provided throughout the procedure by a nurse. Under direct ultrasound guidance, the to the right common femoral artery was punctured with a micropuncture set. A 5 Taiwanese sheath was placed. Through the sheath and over a guidewire a 5 Taiwanese flush catheter was placed the distal abdominal aorta. Bilateral abdominal and pelvic arteriograms were performed in both obliquities. A 6 Taiwanese 45 cm sheath was advanced over the bifurcation and placed in the left common femoral artery. A limited selective left lower extremity arteriogram was performed. With some difficulty, stump of the occluded left SFA was engaged with a 5 Taiwanese catheter and angled Glidewire. The catheter and wire were advanced through thrombosed left SFA and popliteal stents. Distal imaging the trifurcation runoff was performed. A support wire was placed. A 5 Taiwanese Ekos catheter with a 50 cm infusion length was placed from the left common femoral artery to the left popliteal artery below the knee. TPA was initiated at 1 milligram/hour. Sub therapeutic heparin through the sheath was given at 800 units/hour. The patient was transferred to the ICU. FINDINGS: The distal abdominal aorta is patent. Aortic bifurcation is patent. The common external iliac arteries are patent in two views. The internal iliac arteries are patent bilaterally. The left common femoral artery is patent. Left profunda femoral artery is patent. The left SFA is occluded at its origin. Thrombus extends throughout the overlapping left SFA and popliteal artery stents. There is reconstitution of the terminal left popliteal artery. The left trifurcation is intact. There is 3 vessel tibial runoff on the left. The right common femoral arch patent. The right profunda femoral arch patent. The proximal right SFA is patent. IMPRESSION: 1.Thrombosed left SFA and popliteal artery stents. 2. Successful placement of thrombolysis catheter in the left SFA and popliteal occlusion.
--- NOTE | 2017-04-25 20:34 | CP.PCM.CON ---
History of Present Illness - History of Present Illness History of Present Illness: History of Present Illness: The patient is a 62 year old man with a history of DVT, NIDDM, COPD, CVA, left- sided deafness, PAD, HTN and recent history of left SFA and popliteal artery recanalization. The patient was taken earlier today, directly from the ED to the vascular lab for thrombolyses of left SFA and popliteal stent clots. Of note , the patient is a very poor historian and therefore details of history were largely obtained from chart. Current Medications: Per MAR Allergies: NKDA Past Medical History: Per HPI Past Surgical History: Per HPI Family History: Non-contributory Social History: Long history tobacco use; Denies illicit drugs or ETOH Review of Systems: 14 bodily systems reviewed and found to be negative except as noted in the HPI Physical Exam: Vitals (18:53): Afebrile; 183/75; 16; 65 GEN: NAD HEENT: MMM RESP: No C/W/R CARD: RRR GI: Soft, non-tender, non-distended EXT: RLE 1+ DP&PT pulses; LLE: faint DP&TP pulses; Rt femoral ECOS machine in place NEURO: Grossly normal exam Past Patient History - Infectious Disease Hx of Infectious Diseases: None - Tetanus Immunizations Tetanus Immunization: Unknown - Past Social History Smoking Status: Former Smoker - CARDIAC Hx Cardiac Disorders: No - PULMONARY Hx Respiratory Disorders: Yes Hx Chronic Obstructive Pulmonary Disease (COPD): Yes - NEUROLOGICAL Hx Neurological Disorder: Yes - HEENT Hx HEENT Problems: Yes ([place]) Hx Deafness: Yes (LEFT EAR) - RENAL Hx Chronic Kidney Disease: No - ENDOCRINE/METABOLIC Hx Diabetes Mellitus Type 2: Yes - HEMATOLOGICAL/ONCOLOGICAL Hx Blood Disorders: No - INTEGUMENTARY Hx Dermatological Problems: No - MUSCULOSKELETAL/RHEUMATOLOGICAL Hx Musculoskeletal Disorders: No Hx Falls: No - GASTROINTESTINAL Hx Gastrointestinal Disorders: No - GENITOURINARY/GYNECOLOGICAL Hx Genitourinary Disorders: No - PSYCHIATRIC Hx Psychophysiologic Disorder: No - SURGICAL HISTORY Hx Appendectomy: Yes Other/Comment: plate on mouth - ANESTHESIA Hx Anesthesia Reactions: No Hx Malignant Hyperthermia: No Meds Allergies/Adverse Reactions: Allergies Allergy/AdvReac Type Severity Reaction Status Date / Time No Known Allergies Allergy Verified 04/22/17 13:23 - Medications Medications: Current Medications Acetaminophen (Tylenol 325mg Tab) 650 mg PO Q4H PRN PRN Reason: Pain, Mild (1-3) Last Admin: 04/25/17 08:09 Dose: 650 mg Acetaminophen (Tylenol 325mg Tab) 650 mg PO Q4H PRN PRN Reason: Pain, Mild (1-3) Famotidine (Pepcid) 40 mg PO HS TIFFANIE Hydralazine HCl (Apresoline) 10 mg IVP Q6 PRN PRN Reason: Systolic Blood Pressure Hydromorphone HCl (Dilaudid) 2 mg IVP Q4H PRN PRN Reason: Pain, severe (8-10) Last Admin: 04/25/17 20:05 Dose: 2 mg Sodium Chloride (Sodium Chloride 0.9%) 1,000 mls @ 70 mls/hr IV .[id number] TIFFANIE Last Admin: 04/24/17 12:44 Dose: 70 mls/hr Heparin Sodium/Sodium Chloride (Heparin 37426 Units/250ml 1/2 Normal Saline) 25 ,000 units in 250 mls @ 11.218 mls/hr IV .[id number] PRN; Protocol; 18 UNITS/KG/HR PRN Reason: ADJUST RATE PER PROTOCOL Last Admin: 04/25/17 13:40 Dose: 15 units/kg/hr, 9.349 mls/hr Cefazolin Sodium (Ancef 1gm In Ns) 1 gm in 100 mls @ 100 mls/hr IVPB Q12 TIFFANIE PRN Reason: Protocol Insulin Human Regular (Humulin R Med) 0 units SC ACHS TIFFANIE PRN Reason: Protocol Lorazepam (Ativan) 2 mg IVP Q6H PRN PRN Reason: Anxiety Ondansetron HCl (Zofran Inj) 4 mg IVP Q4H PRN PRN Reason: Nausea/Vomiting Oxycodone/Acetaminophen (Percocet 5/325 Mg Tab) 1 tab PO Q6H PRN PRN Reason: Pain, moderate (4-7) Stop: 04/28/17 18:21 Results - Vital Signs Recent Vital Signs: Last Vital Signs Temp 98.5 F 04/25/17 19:24 Pulse 59 L 04/25/17 19:24 Resp 16 04/25/17 19:24 BP 169/79 H 04/25/17 19:24 Pulse Ox 96 04/25/17 16:00 - Labs Result Diagrams: 04/26/17 05:30 04/26/17 05:30 Assessment & Plan - Assessment and Plan (Free Text) Assessment: 1 Assessment and Plan: The patient is a 62 year old man with a history of DVT, NIDDM, COPD, CVA, left- sided deafness, PAD and HTN, s/p thrombolyses of SFA and politeal stent clots by (POD#0), now being admitted to the ICU for close monitoring overnight. 1. SFA/Popliteal Artery Stent Clots (s/p thrombolyses, POD#0): -continue Heparin drip and t-PA -continue with rest of post vascular lab orders, including, antibiotics and PRN IV Dilaudid -patient may have to return to vascular lab tomorrow -follow-up further recs from Dr. Navarro in AM -keep right leg straight and still as possible 2. NIDDM: -Insulin sliding scale -acc-checks ACHS 3. HTN: -will hold home meds overnight -PRN IV Hydralazine to keep SBP<165 4. COPD: -no acute symptoms -PRN Duo-nebs DVT PPx: Patients on Heparin drip GI PPx: Pepcid
[2017-04-25] MEDS: ceFAZolin 1 gm in NS 1 GM/100 ML BAG IVPB SCH (21:56)
[2017-04-25] MEDS: Insulin Reg-MEDIUM-Coverage SC SCH (22:14)
--- NOTE | 2017-04-26 02:43 | PN ---
DATE: SUBJECTIVE: The patient is a 62-year-old female. The patient was seen before procedure, looking comfortable, little bit anxious. No nausea, vomiting or diarrhea. No hematuria or hematochezia. No headache. No dizziness. No fever. Patient's memory is not very good. He is not a good historian. PHYSICAL EXAMINATION: VITAL SIGNS: Temperature 98.5, pulse 60, blood pressure 182/97, respiratory rate 16. HEENT: Head normocephalic, atraumatic. Eyes PERRLA. Extraocular muscles intact. Conjunctivae clear. Nose patent. Mucous membranes moist. NECK: Supple. No carotid bruit. No JVD or thyromegaly. CHEST: Bilaterally symmetrical. HEART: S1 and S2 positive. LUNGS: Clear to auscultation. ABDOMEN: Soft. Bowel sounds positive. No organomegaly. EXTREMITIES: No edema. No cyanosis. NEUROLOGICAL: The patient is awake and alert. Moving all four extremities. No focal deficits. MEDICATIONS: Alteplase Recombinant, Ancef, hydralazine, Ativan, Dilaudid, heparin, Pepcid, Percocet, Tylenol, Zofran. LABORATORY DATA: White blood cells 6.9, hemoglobin 14.0, hematocrit 41.1, platelets 150. Sodium 132, potassium 3.7, BUN 15, creatine 0.6, glucose 232. ASSESSMENT AND PLAN: Mr. Lawrence Vaughn is a 62-year-old male with hypokalemia replaced, hyperglycemia, uncontrolled diabetes mellitus, history of dementia, chronic obstructive pulmonary disease,deafness of the left ear, appendectomy, has severe peripheral vascular disease, arterial occlusion. Dr. Oumar Navarro did angiography today. Successful placement of a thrombolysis catheter in the left superficial femoral artery and popliteal occlusion as per Dr. Oumar Navarro. Now the patient transferred to the unit. Continue cefazolin, hydralazine, lorazepam, heparin drip, Pepcid, oxycodone. Gastrointestinal and deep venous thrombosis prophylaxis. Repeat labs. We will follow up. Chika Cook MD
[2017-04-26] MEDS ORDERED: Heparin25000 units/250ml 1/2NS 25,000 UNITS/250 ML BAG IV SCH ×2 (05:30)
[2017-04-26] MEDS ORDERED: Sodium Chloride 0.9% 1,000 ML IV SCH (05:35)
[2017-04-26 06:19] LABS: HEMOGLOBIN 13.3 g/dL (14.0-18.0); MEAN CELL VOLUME 90.6 fl (80.0-105.0); MEAN CORPUSCULAR HEMOGLOBIN 30.4 pg (25.0-35.0); MEAN CORPUSCULAR HGB CONC 33.6 g/dl (31.0-37.0); RBC 4.37 10^6/uL (3.5-6.1); RED CELL DISTRIBUTION WIDTH 12.8 % (11.5-14.5); WHITE BLOOD COUNT 9.6 10^3/ul (4.5-11.0)
[2017-04-26 06:36] LABS: INR 1.04 (0.93-1.08)
[2017-04-26 07:13] LABS: ALB/GLOB RATIO 1.3 (1.1-1.8); ALBUMIN 2.9 g/dL (3.0-4.8); ALT/SGPT 22 U/L (7-56); AST/SGOT 15 U/L (17-59); BLOOD UREA NITROGEN 8 mg/dL (7-21); CALCIUM 8.6 mg/dL (8.4-10.5); GFR AFRICAN-AMERICAN > 60; GFR NON-AFRICAN AMERICAN > 60; MAGNESIUM 1.9 mg/dL (1.7-2.2)
[2017-04-26] MEDS: Insulin Reg-MEDIUM-Coverage SC SCH ×4 (07:40→21:57)
[2017-04-26] MEDS ORDERED: Potassium Chloride 40 mEq/30 ml LIQ UD PO ONE (08:06)
[2017-04-26] MEDS ORDERED: HEPARIN SODIUM/NS 1,000 ML IV ONE ×2 (08:55→08:59)
[2017-04-26] MEDS ORDERED: Midazolam 2 MG/2 ML VIAL ONE ×2 (08:55→09:31)
[2017-04-26] MEDS ORDERED: Nitroglycerin 50mg in D5W 50 MG/250 ML BOTTLE IV ONE (08:55)
[2017-04-26] MEDS ORDERED: Iodixanol 320 mg/ml 150 ml Bottle IV ONE (09:00)
[2017-04-26] MEDS ORDERED: Iodixanol 320 MG/ML 200 ML BOTTLE IV ONE (09:00)
[2017-04-26] MEDS ORDERED: Lidocaine 2% Inj (20ml) ONE (09:07)
--- NOTE | 2017-04-26 09:45 | CP.PCM.PN ---
<Pari Menjivar - Last Filed: 04/26/17 10:04> Subjective - Date & Time of Evaluation Date of Evaluation: 04/26/17 Time of Evaluation: 09:42 - Subjective Subjective: ICU Progress Note for Jayden Chavez PGY2 Patient seen and examined at beside. As per nursing staff, there were no acute overnight events. Patient reports having pain in his legs, but denies chest pain , shortness of breath, nausea/vomiting/diarrhea, numbness/tingling, fever or chills. Objective - Vital Signs/Intake and Output Vital Signs (last 24 hours): Temp Pulse Resp BP Pulse Ox 98.5 F 69 17 155/79 H 98 04/25/17 19:24 04/26/17 06:10 04/26/17 06:10 04/26/17 06:00 04/26/17 06:10 - Medications Medications: Current Medications Acetaminophen (Tylenol 325mg Tab) 650 mg PO Q4H PRN PRN Reason: Pain, Mild (1-3) Famotidine (Pepcid) 40 mg PO HS [facility] Last Admin: 04/25/17 21:56 Dose: 40 mg Hydralazine HCl (Apresoline) 10 mg IVP Q6 PRN PRN Reason: Systolic Blood Pressure Last Admin: 04/25/17 22:00 Dose: 10 mg Hydromorphone HCl (Dilaudid) 2 mg IVP Q4H PRN PRN Reason: Pain, severe (8-10) Last Admin: 04/26/17 04:28 Dose: 2 mg Cefazolin Sodium (Ancef 1gm In Ns) 1 gm in 100 mls @ 100 mls/hr IVPB Q12 [facility] PRN Reason: Protocol Last Admin: 04/25/17 21:56 Dose: 100 mls/hr Alteplase, Recombinant 10 mg/ (Sodium Chloride) 500 mls @ 30 mls/hr IV Q16H [facility] Last Admin: 04/26/17 02:00 Dose: 30 mls/hr Heparin Sodium/Sodium Chloride (Heparin 49113 Units/250ml 1/2 Normal Saline) 25 ,000 units in 250 mls @ 8 mls/hr IV .Q24H [facility] Last Admin: 04/26/17 05:39 Dose: 8 mls/hr Sodium Chloride (Sodium Chloride 0.9%) 1,000 mls @ 75 mls/hr IV .[id number] [facility] Last Admin: 04/26/17 05:38 Dose: 75 mls/hr Insulin Human Regular (Humulin R Med) 0 units SC ACHS [facility] PRN Reason: Protocol Last Admin: 04/25/17 22:14 Dose: Not Given Lorazepam (Ativan) 2 mg IVP Q6H PRN PRN Reason: Anxiety Ondansetron HCl (Zofran Inj) 4 mg IVP Q4H PRN PRN Reason: Nausea/Vomiting Oxycodone/Acetaminophen (Percocet 5/325 Mg Tab) 1 tab PO Q6H PRN PRN Reason: Pain, moderate (4-7) Stop: 04/28/17 18:21 - Labs Labs: 04/26/17 05:30 04/26/17 05:30 PT 12.0 SECONDS (9.4-12.5) 04/26/17 05:30 INR 1.04 (0.93-1.08) 04/26/17 05:30 APTT 41.0 Seconds (25.1-36.5) H 04/26/17 05:30 - Constitutional Appears: No Acute Distress - Head Exam Head Exam: ATRAUMATIC, NORMAL INSPECTION - Eye Exam Eye Exam: Normal appearance, PERRL Pupil Exam: NORMAL ACCOMODATION, PERRL - ENT Exam ENT Exam: Mucous Membranes Moist - Respiratory Exam Respiratory Exam: Clear to Ausculation Bilateral, NORMAL BREATHING PATTERN. absent: Rales, Rhonchi, Wheezes - Cardiovascular Exam Cardiovascular Exam: REGULAR RHYTHM, +S1, +S2. absent: Gallop, Rubs, Murmur - GI/Abdominal Exam GI & Abdominal Exam: Soft, Normal Bowel Sounds. absent: Rigid, Tenderness, Mass , Rebound - Extremities Exam Additional comments: L leg EKOS in place - Neurological Exam Neurological Exam: Alert, Awake, CN II-XII Intact, Oriented x3 - Psychiatric Exam Psychiatric exam: Normal Affect, Normal Mood - Skin Skin Exam: Dry, Warm Assessment and Plan - Assessment and Plan (Free Text) Assessment: This is a 62 year old man with a history of DVT, NIDDM, COPD, CVA, left-sided deafness, PAD and HTN, s/p thrombolysis of SFA and politeal stent clots by (POD# 1) on EKOS. Plan is for patient to be re-evaluated by Dr. Navarro this AM. Plan: Neuro: Hx of CVA- moving all extremities A&O x 3 Maintain normothermia Pain control Ativan prn CV: HD stable s/p L SFA and popliteal stent on EKOS- pt was evaluated by Dr. Navarro this am. He recommended to stop tPA and continue heparin drip. Patient can be OOB to chair in evening. Continue Heparin drip Hydralazine prn IR on consult Maintain MAP>65 Pulm: Hx of COPD Comfortable on room air Maintain spO2>90% Aspiration precaution, HOB elevated GI: Heart healthy/Carb consistent diet Zofran prn nausea Heme: S/p L SFA and popliteal stents Hgb stable no overt signs of bleeding Nephro: Hypokalemia Continue to monitor electrolytes and replace as needed Endo: Hx of DM ISS Maintain euglycemia GI ppx: Protonix DVT ppx: Heparin drip Dispo: As per Dr. Navarro patient should be able to be discharged tomorrow. Case seen, discussed and reviewed with attending. Jayden Menjivar PGY2 <Clement Bravo B - Last Filed: 04/26/17 18:57> Objective - Vital Signs/Intake and Output Vital Signs (last 24 hours): Temp Pulse Resp BP Pulse Ox 97.5 F L 80 15 103/71 92 L 04/26/17 11:50 04/26/17 17:40 04/26/17 17:40 04/26/17 17:02 04/26/17 17:40 - Medications Medications: Current Medications Acetaminophen (Tylenol 325mg Tab) 650 mg PO Q4H PRN PRN Reason: Pain, Mild (1-3) Aspirin (Ecotrin) 325 mg PO DAILY [facility] Last Admin: 04/26/17 10:59 Dose: 325 mg Famotidine (Pepcid) 40 mg PO HS [facility] Last Admin: 04/25/17 21:56 Dose: 40 mg Hydralazine HCl (Apresoline) 10 mg IVP Q6 PRN PRN Reason: Systolic Blood Pressure Last Admin: 04/25/17 22:00 Dose: 10 mg Hydromorphone HCl (Dilaudid) 2 mg IVP Q4H PRN PRN Reason: Pain, severe (8-10) Last Admin: 04/26/17 04:28 Dose: 2 mg Cefazolin Sodium (Ancef 1gm In Ns) 1 gm in 100 mls @ 100 mls/hr IVPB Q12 [facility] PRN Reason: Protocol Last Admin: 04/26/17 10:58 Dose: 100 mls/hr Heparin Sodium/Sodium Chloride (Heparin 20344 Units/250ml 1/2 Normal Saline) 25 ,000 units in 250 mls @ 11.186 mls/hr IV .[id number] PRN; Protocol; 18 UNITS/KG/HR PRN Reason: ADJUST RATE PER PROTOCOL Stop: 04/27/17 08:00 Last Admin: 04/26/17 13:19 Dose: 18 units/kg/hr, 11.186 mls/hr Sodium Chloride (Sodium Chloride 0.45%) 1,000 mls @ 80 mls/hr IV .[id number] [facility] Stop: 04/27/17 06:00 Last Admin: 04/26/17 09:50 Dose: 80 mls/hr Insulin Human Regular (Humulin R Med) 0 units SC ACHS [facility] PRN Reason: Protocol Last Admin: 04/26/17 16:57 Dose: 5 units Lorazepam (Ativan) 2 mg IVP Q6H PRN PRN Reason: Anxiety Ondansetron HCl (Zofran Inj) 4 mg IVP Q4H PRN PRN Reason: Nausea/Vomiting Oxycodone/Acetaminophen (Percocet 5/325 Mg Tab) 1 tab PO Q6H PRN PRN Reason: Pain, moderate (4-7) Stop: 04/28/17 18:21 Last Admin: 04/26/17 15:36 Dose: 1 tab - Labs Labs: 04/26/17 05:30 04/26/17 05:30 PT 12.0 SECONDS (9.4-12.5) 04/26/17 05:30 INR 1.04 (0.93-1.08) 04/26/17 05:30 APTT 86.1 Seconds (25.1-36.5) H 04/26/17 14:50 Attending/Attestation - Attestation I have personally seen and examined this patient.: Yes I have fully participated in the care of the patient.: Yes I have reviewed all pertinent clinical information, including history, physical exam and plan: Yes Notes (Text): 04/26/17 18:50 62 yo male with acute arterial LE thrombosis, s/p L SFA and popliteal stent. Heparin drip, hydralazine prn. HD stable, not in respiratory or otherwise distress. OOB to chair, AP, IS, chest PT, PT ccm time 40 min
[2017-04-26] MEDS ORDERED: Heparin25000 units/250ml 1/2NS 25,000 UNITS/250 ML BAG IV ONE (09:50)
[2017-04-26] MEDS: Sodium Chloride 0.45% 1,000 ML IV SCH ×2 (09:50→21:34)
[2017-04-26] MEDS: ceFAZolin 1 gm in NS 1 GM/100 ML BAG IVPB SCH ×2 (10:58→21:33)
[2017-04-26] MEDS: Aspirin 325 mg EC Tablets PO SCH (10:59)
[2017-04-26] MEDS: Heparin25000 units/250ml 1/2NS 25,000 UNITS/250 ML BAG IV PRN ×2 (13:19→21:29)
[2017-04-26] MEDS: Oxycodone/Acetaminophen 5/325 mg Tab PO PRN ×2 (15:36→21:43)
--- NOTE | 2017-04-26 18:41 | VASCULAR ---
PROCEDURE: 1. Follow-up left lower extremity arteriogram 2. Left SFA and popliteal artery angioplasty and stent placement 3. Dura vascular ultrasound left common femoral artery, left SFA, and left popliteal artery above the knee. HISTORY: Severe peripheral vascular disease. Recent long segment recanalization left SFA occlusion with drug-eluting balloon and stent placement. Acute thrombosis with right foot ischemia. Catheter-directed thrombolysis for 24 hours. PHYSICIAN(S): Oumar Navarro M.D. TECHNIQUE: The relative risks and indications of the procedure were explained to the patient and consent obtained. The patient was hydrated prior to the procedure and the appropriate labs drawn. The patient was placed supine on the arteriogram table and the infusion system placed via the right groin prepped and draped in the usual sterile fashion Contrast was injected through the catheter. Revealed a patent trifurcation with three-vessel runoff. The catheter was removed over a guidewire. An overlapping left lower extremity arteriogram was performed through the sheath in the left common femoral artery. Intravascular ultrasound revealed a dissection and severe narrowing of the proximal left SFA. The stents were under dilated. The left popliteal artery was patent. An 8 mm x 100 mm self expanding stent was placed the origin of the left SFA. There was residual stenosis at the origin and re- coil. Subsequently an 8 mm x 27 mm balloon expandable stent was placed the ostium left SFA. Improved result was obtained. The previously placed left SFA and popliteal stents were dilated with a 6 mm balloon. Completion intravascular ultrasound was performed. Completion angiograms were obtained. The sheath was removed hemostasis obtained with a Perclose device. The patient tolerated the procedure well. FINDINGS: Complete lie cysts of the previous thrombosed left SFA stents is noted. There is a dissection severe narrowing of the proximal left SFA. This was successfully treated with additional self expanding Nitinol stents. A balloon expandable stent was placed the ostium. The left profunda femoral artery is patent. There is 3 vessel runoff. IMPRESSION: 1.Successful thrombolysis of the occluded SFA and popliteal stents. 2. Dissection in residual severe narrowing of the proximal left SFA. 3. Successful stent placement angioplasty the proximal left SFA.
[2017-04-27 00:31] VITALS: TEMP 98.5
[2017-04-27 03:16] LABS: HEMOGLOBIN 13.1 g/dL (14.0-18.0); MEAN CELL VOLUME 88.3 fl (80.0-105.0); MEAN CORPUSCULAR HEMOGLOBIN 30.5 pg (25.0-35.0); MEAN CORPUSCULAR HGB CONC 34.6 g/dl (31.0-37.0); MEAN PLATELET VOLUME 10.6 fl (7.0-11.0); RBC 4.29 10^6/uL (3.5-6.1); RED CELL DISTRIBUTION WIDTH 13.1 % (11.5-14.5); WHITE BLOOD COUNT 9.8 10^3/ul (4.5-11.0)
[2017-04-27 03:34] LABS: ALB/GLOB RATIO 1.3 (1.1-1.8); ALBUMIN 3.1 g/dL (3.0-4.8); ALT/SGPT 18 U/L (7-56); AST/SGOT 20 U/L (17-59); BLOOD UREA NITROGEN 10 mg/dL (7-21); CALCIUM 8.8 mg/dL (8.4-10.5); GFR AFRICAN-AMERICAN > 60; GFR NON-AFRICAN AMERICAN > 60
[2017-04-27] MEDS: Oxycodone/Acetaminophen 5/325 mg Tab PO PRN (04:25)
[2017-04-27] MEDS: Insulin Reg-MEDIUM-Coverage SC SCH ×2 (07:50→11:30)
[2017-04-27] MEDS: ceFAZolin 1 gm in NS 1 GM/100 ML BAG IVPB SCH (10:40)
[2017-04-27] MEDS: Aspirin 325 mg EC Tablets PO SCH (10:53)
--- NOTE | 2017-04-27 11:05 | CP.PCM.PN ---
Subjective - Date & Time of Evaluation Date of Evaluation: 04/27/17 Time of Evaluation: 07:50 - Subjective Subjective: Pt seen and examined, reports no major complaints. Objective - Vital Signs/Intake and Output Vital Signs (last 24 hours): Temp Pulse Resp BP Pulse Ox 98.5 F 62 14 127/70 97 04/26/17 20:33 04/27/17 06:20 04/27/17 06:20 04/27/17 06:00 04/27/17 06:20 Intake and Output: 04/27/17 04/27/17 06:59 18:59 Intake Total 250 Output Total 1700 Balance -1450 - Medications Medications: Current Medications Acetaminophen (Tylenol 325mg Tab) 650 mg PO Q4H PRN PRN Reason: Pain, Mild (1-3) Last Admin: 04/27/17 10:39 Dose: 650 mg Aspirin (Ecotrin) 325 mg PO DAILY [facility] Last Admin: 04/27/17 10:53 Dose: 325 mg Famotidine (Pepcid) 40 mg PO HS [facility] Last Admin: 04/25/17 21:56 Dose: 40 mg Hydralazine HCl (Apresoline) 10 mg IVP Q6 PRN PRN Reason: Systolic Blood Pressure Last Admin: 04/25/17 22:00 Dose: 10 mg Hydromorphone HCl (Dilaudid) 2 mg IVP Q4H PRN PRN Reason: Pain, severe (8-10) Last Admin: 04/26/17 04:28 Dose: 2 mg Cefazolin Sodium (Ancef 1gm In Ns) 1 gm in 100 mls @ 100 mls/hr IVPB Q12 [facility] PRN Reason: Protocol Last Admin: 04/27/17 10:40 Dose: 100 mls/hr Insulin Human Regular (Humulin R Med) 0 units SC ACHS [facility] PRN Reason: Protocol Last Admin: 04/27/17 07:50 Dose: Not Given Lorazepam (Ativan) 2 mg IVP Q6H PRN PRN Reason: Anxiety Ondansetron HCl (Zofran Inj) 4 mg IVP Q4H PRN PRN Reason: Nausea/Vomiting Oxycodone/Acetaminophen (Percocet 5/325 Mg Tab) 1 tab PO Q6H PRN PRN Reason: Pain, moderate (4-7) Stop: 04/28/17 18:21 Last Admin: 04/27/17 04:25 Dose: 1 tab - Labs Labs: 04/27/17 03:05 04/27/17 03:05 PT 12.0 SECONDS (9.4-12.5) 04/26/17 05:30 INR 1.04 (0.93-1.08) 04/26/17 05:30 APTT 58.4 Seconds (25.1-36.5) H 04/27/17 03:05 - Constitutional Appears: Non-toxic, No Acute Distress - Eye Exam Eye Exam: Normal appearance - ENT Exam ENT Exam: Mucous Membranes Moist - Respiratory Exam Respiratory Exam: Clear to Ausculation Bilateral, NORMAL BREATHING PATTERN - Cardiovascular Exam Cardiovascular Exam: REGULAR RHYTHM, +S1, +S2 - GI/Abdominal Exam GI & Abdominal Exam: Soft, Normal Bowel Sounds - Extremities Exam Extremities Exam: Normal Inspection - Neurological Exam Neurological Exam: Alert, Awake, Oriented x3 Assessment and Plan - Assessment and Plan (Free Text) Assessment: 62 yo male with acute arterial LE thrombosis, s/p L SFA and popliteal stent. - currently afebrile HD stable, comfortable in NAD, on Heparin drip, as per IR 24hr Heparin infusion - ASA, Statin, BP control - Smoking cessation - FS control - GI ppx - DVT ppx - Stable, can be discharged as per IR
[2017-04-27 14:30] VITALS: BP 122/69; PULSE 84; RESP 18; O2SAT 100
--- NOTE | 2017-04-29 09:41 | PN ---
DATE: 04/26/2017 SUBJECTIVE: The patient is a 62-year-old male. The patient is seen and examined at the bedside, looking comfortable. No nausea, vomiting or diarrhea. No hematuria or hematochezia. The patient was seen and examined in the ICU. Still complaining about a little bit leg pain, but better. No chest pain. No acute event overnight happened. PHYSICAL EXAMINATION: VITAL SIGNS: Temperature 98.5, pulse 69, respiratory rate 17, blood pressure 155/79, pulse oximetry 98. HEENT: Head normocephalic, atraumatic. Eyes PERRLA. Extraocular muscles intact. Conjunctivae clear. Nose patent. Mucous membrane moist. NECK: Supple. No carotid bruit. No JVD or thyromegaly. CHEST: Bilaterally symmetrical. HEART: S1 and S2 positive. LUNGS: Clear to auscultation. ABDOMEN: Soft. Bowel sounds positive. No organomegaly. EXTREMITIES: No edema. No cyanosis. NEUROLOGICAL: The patient is awake and alert. Moving all 4 extremities. No focal deficits. LABORATORY DATA: White blood cells 9.6, hemoglobin 13.2, hematocrit 39.3, platelet 127. Sodium 139, potassium 3.2, BUN and creatinine noted glucose 208. MEDICATIONS: Tylenol, Pepcid, hydralazine, Dilaudid, Ancef, heparin, insulin, Ativan, Zofran, oxycodone. ASSESSMENT AND PLAN: The patient is a 62-year-old male with anemia, hypokalemia, hyperglycemia, history of deep venous thrombosis, [id number] diabetes mellitus, chronic obstructive pulmonary disease, cerebrovascular accident, left-sided deafness, peripheral arterial disease, and hypertension, status post thrombolysis of superficial femoral artery and popliteal stent clots, postoperative day #1, on EKOS. Plan is for the patient to be reevaluated by Dr. Oumar Navarro tomorrow in the morning. Continue hydralazine. Comfortable on room air. Maintain oxygenation 90%. Aspiration precautions. GI and deep venous thrombosis prophylaxis. Hypokalemia. Continue to monitor electrolytes. We will follow up. Chika Cook MD Julius # [id number] MTDD
== END 2017-04-27 14:38 | disposition home or self-care (01) | DRG 254 ==
LOC: ED 10:19 → ERH 14:34 → 5RNO 23:20 → OBSVTOIN 04-25 14:31 → ICU 04-25 20:00 → CCU 04-26 10:13
PROVIDERS: ADMIT Internal Medicine; ATTEND Internal Medicine
PROC: 3E05317 Introduction of Other Thrombolytic into Peripheral Artery, Percutaneous Approach (ICD-10-PCS; 2017-04-25)
PROC: 047L3EZ Dilation of Left Femoral Artery with Two Intraluminal Devices, Percutaneous Approach (ICD-10-PCS; principal; 2017-04-26)
PROC: 047N3ZZ Dilation of Left Popliteal Artery, Percutaneous Approach (ICD-10-PCS; 2017-04-26)
DX: T82.868A Thrombosis due to vascular prosthetic devices, implants and grafts, initial encounter (principal); E11.51 Type 2 diabetes mellitus with diabetic peripheral angiopathy without gangrene; E11.65 Type 2 diabetes mellitus with hyperglycemia; F03.90 Unspecified dementia, unspecified severity, without behavioral disturbance, psychotic disturbance, mood disturbance, and anxiety; E87.6 Hypokalemia; F17.200 Nicotine dependence, unspecified, uncomplicated; D64.9 Anemia, unspecified; H91.92 Unspecified hearing loss, left ear; I10 Essential (primary) hypertension; J44.9 Chronic obstructive pulmonary disease, unspecified; Z86.718 Personal history of other venous thrombosis and embolism; Z86.73 Personal history of transient ischemic attack (TIA), and cerebral infarction without residual deficits; Z90.49 Acquired absence of other specified parts of digestive tract; Y84.8 Other medical procedures as the cause of abnormal reaction of the patient, or of later complication, without mention of misadventure at the time of the procedure; R40.2412 Glasgow coma scale score 13-15, at arrival to emergency department